=== PATIENT | female | born 1985 | race African-American/Black ===

== ENCOUNTER 2017-05-03 21:23 | Emergency (ER) | payer SELFPAY ==
[2017-05-03 21:34] VITALS: BP 125/79; PULSE 85; TEMP 98.3; BMI 55.3
--- NOTE | 2017-05-03 22:21 | PDOC ---
History of Present Illness - General History Source: Patient Exam Limitations: No Limitations - History of Present Illness Initial Comments: 05/03/17 22:32 The patient is a 31 year old female with past medical history of morbid obesity and hypertension who presents with complaints of cough for a week and a half. She states her cough is dry, worse at night and is accompanied with a left sided chest pain that is worsened with the cough, as well as an occipital headache. She denies any fever, chills, nausea, vomiting, diarrhea, or urinary symptoms. <Melita Paredes - Last Filed: 05/03/17 22:32> <Vanda Henry - Last Filed: 05/04/17 01:39> - General Chief Complaint: Respiratory Stated Complaint: COUGHING Time Seen by Provider: 05/03/17 22:15 Past History <Melita Paredes - Last Filed: 05/03/17 22:32> - Past Medical History Other medical history: denies - Suicide/Smoking/Psychosocial Hx Smoking History: Never smoked <Vanda Henry - Last Filed: 05/04/17 01:39> - Past Medical History Allergies/Adverse Reactions: Allergies Allergy/AdvReac Type Severity Reaction Status Date / Time hydrocodone bitartrate Allergy Verified 05/03/17 21:34 [From Vicoprofen] ibuprofen [From Vicoprofen] Allergy Verified 05/03/17 21:34 peanut Allergy Verified 05/03/17 21:34 shrimp Allergy Verified 05/03/17 21:34 Home Medications: Ambulatory Orders Acetaminophen W/ Codeine #3 [Tylenol # 3 -] 2 tab PO Q8H #18 tablet MDD 6 Azithromycin [Zithromax Tri-Rosalino (3 DAYS) -] 500 mg PO DAILY #3 tablet 05/04/17 Review of Systems - Review of Systems Able to Perform ROS?: Yes Comments:: 05/03/17 22:39 CONSTITUTIONAL: Absent: fever, chills, diaphoresis, generalized weakness, malaise, loss of appetite HEENT: Absent: rhinorrhea, nasal congestion, throat pain, throat swelling, difficulty swallowing, mouth swelling, ear pain, eye pain, visual Changes CARDIOVASCULAR: Present: left sided chest pain Absent: syncope, palpitations, irregular heart rate, lightheadedness, peripheral edema RESPIRATORY: Present: dry cough Absent: shortness of breath, dyspnea with exertion, orthopnea, wheezing, stridor, hemoptysis GASTROINTESTINAL: Absent: abdominal pain, abdominal distension, nausea, vomiting, diarrhea, constipation, melena, hematochezia GENITOURINARY: Absent: dysuria, frequency, urgency, hesitancy, hematuria, flank pain, genital pain MUSCULOSKELETAL: Absent: myalgia, arthralgia, joint swelling SKIN: Absent: rash, itching, pallor HEMATOLOGIC/IMMUNOLOGIC: Absent: easy bleeding, easy bruising, lymphadenopathy, frequent infections ENDOCRINE: Absent: unexplained weight gain, unexplained weight loss, heat intolerance, cold intolerance NEUROLOGIC: Present: headache Absent: focal weakness or paresthesias, dizziness, unsteady gait, seizure, mental status changes, bladder or bowel incontinence PSYCHIATRIC: Absent: anxiety, depression, suicidal or homicidal ideation, hallucinations. All Other Systems: Reviewed and Negative <Melita Paredes - Last Filed: 05/03/17 22:32> *Physical Exam - Vital Signs Last Vital Signs Temp Pulse Resp BP Pulse Ox 98.3 F 85 18 125/79 99 05/03/17 21:29 05/03/17 21:29 05/03/17 21:29 05/03/17 21:29 05/03/17 21:29 - Physical Exam Comments: 05/03/17 22:40 GENERAL: Well developed, morbidly obese. Awake and alert. No acute distress. HEENT: Normocephalic, atraumatic. PERRLA, EOMI. No conjunctival pallor. Sclera are non- icteric. Moist mucous membranes. Oropharynx is clear. NECK: Supple. Full ROM. No JVD. Carotid pulses 2+ and symmetric, without bruits. No thyromegaly. No lymphadenopathy. CARDIOVASCULAR: Regular rate and rhythm. No murmurs, rubs, or gallops. Distal pulses are 2+ and symmetric. PULMONARY: Bilateral wheezes in all lung nj. No rales or rhonchi. ABDOMINAL: Soft. Non-tender. Non-distended. No rebound or guarding. No organomegaly. Normoactive bowel sounds. MUSCULOSKELETAL Normal range of motion at all joints. No bony deformities or tenderness. No CVA tenderness. EXTREMITIES: No cyanosis. No clubbing. No edema. No calf tenderness. SKIN: Warm and dry. Normal capillary refill. No rashes. No jaundice. NEUROLOGICAL: Alert, awake, appropriate. Cranial nerves 2-12 intact. No deficits to light touch and temperature in face, upper extremities and lower extremities. No motor deficits in the in face, upper extremities and lower extremities. Normoreflexic in the upper and lower extremities. Normal speech. Toes are down-going bilaterally. Gait is normal without ataxia. PSYCHIATRIC: Cooperative. Good eye contact. Appropriate mood and affect. <Melita Paredes - Last Filed: 05/03/17 22:32> - Vital Signs Last Vital Signs Temp Pulse Resp BP Pulse Ox 98.3 F 85 18 125/79 99 05/03/17 21:29 05/03/17 21:29 05/03/17 21:29 05/03/17 21:29 05/03/17 21:29 <Vanda Henry - Last Filed: 05/04/17 01:39> Medical Decision Making - Medical Decision Making 05/04/17 01:36 Morbidly obese female comes with cough x 2 weeks. SHe has no other complaints. She has no hx of asthma. Pt was given steroids, duoneb, tyl#3 for cough suppression and JIN, as well as zithromax for atypical pneumonia. Pt will go home with T#3 and zpak. Pt has known allergy to hydromorphone that causes hives, but states that despite that she has no problem with percocet or T#3. Pt's cxr is normal and she is vastly improved with treatment. <Vanda Henry - Last Filed: 05/04/17 01:39> *DC/Admit/Observation/Transfer - Attestations Scribe Attestion: 05/03/17 22:43 Documentation prepared by Melita Paredes, acting as program medical director for Vanda Henry MD. <Melita Paredes - Last Filed: 05/03/17 22:32> - Discharge Dispostion Admit: No <Vanda Henry - Last Filed: 05/04/17 01:39> Diagnosis at time of Disposition: Atypical pneumonia, Cough headache - Discharge Dispostion Disposition: HOME Condition at time of disposition: Stable - Prescriptions Prescriptions: Acetaminophen W/ Codeine #3 [Tylenol # 3 -] 2 tab PO Q8H #18 tablet MDD 6 Azithromycin [Zithromax Tri-Rosalino (3 DAYS) -] 500 mg PO DAILY #3 tablet - Patient Instructions Printed Discharge Instructions: DI for Pneumonia -- Adult - Post Discharge Activity Forms/Work/School Notes: Back to Work
[2017-05-03] MEDS ORDERED: ACETAMINOPHEN WITH CODEINE 300MG/30MG TABLET PO ONE (22:29)
[2017-05-03] MEDS ORDERED: AZITHROMYCIN 250 MG TABLET PO ONE (22:30)
[2017-05-03] MEDS ORDERED: DEXAMETHASONE LIQUID 0.5 MG/5 ML 240 ML BULK BOTTLE PO ONE (22:31)
[2017-05-03] MEDS ORDERED: AZITHROMYCIN 250 MG TABLET ONE (22:34)
[2017-05-03] MEDS ORDERED: DEXAMETHASONE SOD PHOSPHATE 10 MG/1 ML VIAL ONE (22:34)
[2017-05-03] MEDS ORDERED: ACETAMINOPHEN WITH CODEINE 300MG/30MG TABLET ONE (22:34)
== END 2017-05-04 00:15 | disposition home or self-care (01) ==
LOC: JER 21:23 → JERFT 21:23 → JER 05-04 00:15
DX: J18.9 Pneumonia, unspecified organism (principal); I10 Essential (primary) hypertension; E66.01 Morbid (severe) obesity due to excess calories; Z68.43 Body mass index [BMI] 50.0-59.9, adult
CPT/HCPCS: 71020-TC; 84703; 99282-25

== ENCOUNTER 2017-07-02 17:36 | Emergency (ER) | payer OTHER ==
--- NOTE | 2017-07-02 17:40 | PDOC ---
Rapid Medical Evaluation Time Seen by Provider: 07/02/17 17:39 Medical Evaluation: Allergies Allergy/AdvReac Type Severity Reaction Status Date / Time hydrocodone bitartrate Allergy Verified 05/03/17 21:34 [From Vicoprofen] ibuprofen [From Vicoprofen] Allergy Verified 05/03/17 21:34 peanut Allergy Verified 05/03/17 21:34 shrimp Allergy Verified 05/03/17 21:34 07/02/17 17:39 I have performed a brief in-person evaluation of this patient. The patient presents with a chief complaint of: Lower abd pain w/ ? urinary freq and nausea x 1 week ago. Morbid obesity and sickle cell trait Pertinent physical exam findings:Stable w/ ttp to lower abd diffusely I have ordered the following:cbc/chem/ua/upreg/gc/chlam The patient will proceed to the ED for further evaluation. 07/02/17 17:40 07/02/17 17:41
[2017-07-02 17:42] VITALS: BP 137/90; PULSE 84; TEMP 98.1; BMI 68.0
[2017-07-02 18:36] LABS: PH,URINE 6.5 (5.0-8.0); URINE APPEARANCE CLEAR; URINE BILIRUBIN NEGATIVE (NEGATIVE); URINE BLOOD NEGATIVE (NEGATIVE); URINE COLOR LT. YELLOW; URINE GLUCOSE (UA) NEGATIVE (NEGATIVE); URINE KETONE NEGATIVE (NEGATIVE); URINE NITRITE NEGATIVE (NEGATIVE); URINE PROTEIN NEGATIVE (NEGATIVE); URINE UROBILINOGEN 0.2 mg/dL (0.2-1.0)
[2017-07-02 21:25] LABS: URINE LEUK ESTERASE 1+ (NEGATIVE)
[2017-07-02 22:18] LABS: URINE BACTERIA FEW /hpf (NEGATIVE); URINE RBC 0-2 /hpf (0-3)
== END 2017-07-02 21:17 | disposition left against medical advice (07) ==
LOC: JER 17:36
DX: R10.30 Lower abdominal pain, unspecified (principal); D57.3 Sickle-cell trait; E66.01 Morbid (severe) obesity due to excess calories; Z68.44 Body mass index [BMI] 60.0-69.9, adult
CPT/HCPCS: 36415; 81003; 81015; 84703; 87491; 87591; 99281-25

== ENCOUNTER 2017-07-03 21:43 | Emergency (ER) | payer OTHER ==
[2017-07-03 21:49] VITALS: TEMP 98.6; BMI 64.6
--- NOTE | 2017-07-03 21:51 | PDOC ---
Rapid Medical Evaluation Chief Complaint: Pain Time Seen by Provider: 07/03/17 21:47 Medical Evaluation: Allergies Allergy/AdvReac Type Severity Reaction Status Date / Time hydrocodone bitartrate Allergy Verified 07/02/17 17:42 [From Vicoprofen] peanut Allergy Verified 07/02/17 17:42 shrimp Allergy Verified 07/02/17 17:42 07/03/17 21:47 Pt presents with complaint of : left upper quadrant pain x1 week. + nausea/ On brief exam: Patient alert ox3, LUQ + tenderness. no CVAT I have ordered the following: cbc, cmp, lipase, UA, Urine Pt will go to the Emergency Dept for further workup 07/03/17 21:50
[2017-07-03] MEDS ORDERED: FAMOTIDINE IV 20 MG/12 ML VIAL IVPUSH ONE ×2 (23:45)
[2017-07-03] MEDS ORDERED: SODIUM CHLORIDE 1,000 ML IV STA (23:46)
[2017-07-03] MEDS ORDERED: MAG HYDROX/AL HYDROX/SIMETH 30 ML UNIT-DOSE CUP PO ONE (23:46)
[2017-07-03] MEDS ORDERED: FAMOTIDINE 20 MG/50 ML IVPB 50 ML IVPB ONE (23:46)
[2017-07-03] MEDS ORDERED: ONDANSETRON 4 MG/2 ML VIAL IVPB ONE (23:46)
[2017-07-03] MEDS ORDERED: MAG HYDROX/AL HYDROX/SIMETH 30 ML UNIT-DOSE CUP ONE (23:51)
[2017-07-03] MEDS ORDERED: ONDANSETRON 4 MG/2 ML VIAL ONE (23:51)
[2017-07-04] MEDS ORDERED: FAMOTIDINE 20 MG/50 ML IVPB 20 MG/50 ML MG IVPB ONE (00:23)
[2017-07-04] MEDS ORDERED: FAMOTIDINE 20 MG/50 ML IVPB 50 MG/125 ML MG IVPB ONE (00:29)
--- NOTE | 2017-07-04 00:32 | PDOC ---
History of Present Illness - General Chief Complaint: Pain Stated Complaint: STOMACH PAIN Time Seen by Provider: 07/03/17 21:47 - History of Present Illness Initial Comments: 07/04/17 00:27 "The patient is a 32 year old female, with a significant past medical history of sickle cell trait and anemia, who presents to the emergency department complaining of abdominal pain for approximately 1 week. The patient reports epigastric for about 1 week. She reports associated nausea without vomiting, exacerbated with solid or fluid intake. She denies any diarrhea or constipation. She reports hot flashes at night but denies any fever, chills, cough, or dizziness. She reports taking a total of 1000 mg Ibuprofen every day as well as Aspirin for the past week for migraine headaches. Denies any dark stools or BRBPR. She denies any dysuria, hematuria, frequency, or urgency. She denies any chest pain, shortness of breath, diaphoresis, or palpitations. She denies any recent travel or sick contacts. Allergies: NKDA Past Surgical History: Section Social History: Non smoker. No ETOH or recreational drug use. " Past History - Past Medical History Allergies/Adverse Reactions: Allergies Allergy/AdvReac Type Severity Reaction Status Date / Time hydrocodone bitartrate Allergy Verified 07/02/17 17:42 [From Vicoprofen] peanut Allergy Verified 07/02/17 17:42 shrimp Allergy Verified 07/02/17 17:42 Home Medications: Ambulatory Orders Esomeprazole Magnesium [Nexium 24Hr] 20 mg PO DAILY #30 tablet. 07/04/17 COPD: No - Suicide/Smoking/Psychosocial Hx Smoking History: Never smoked Have you smoked in the past 12 months: No Information on smoking cessation initiated: No Hx Alcohol Use: No Drug/Substance Use Hx: No *Physical Exam - Vital Signs Last Vital Signs Temp Pulse Resp BP Pulse Ox 98.6 F 94 H 20 155/63 98 07/03/17 21:47 07/03/17 21:47 07/03/17 21:47 07/03/17 21:47 07/03/17 21:47 - Physical Exam Comments: 07/04/17 00:29 "GENERAL: Awake, alert, and fully oriented, in no acute distress HEAD: No signs of trauma EYES: PERRLA, EOMI, sclera anicteric, conjunctiva clear ENT: Auricles normal inspection, hearing grossly normal, nares patent, oropharynx clear without exudates. Moist mucosa NECK: Nontender, no stepoffs, Normal ROM, supple, no lymphadenopathy, JVD, or masses LUNGS: Breath sounds equal, clear to auscultation bilaterally. No wheezes, and no crackles HEART: Regular rate and rhythm, normal S1 and S2, no murmurs, rubs or gallops ABDOMEN: +epigastric TTP, negative velez's. No guarding, no rebound. No masses EXTREMITIES: Normal range of motion, no edema. No clubbing or cyanosis. No cords, erythema, or tenderness NEUROLOGICAL: Cranial nerves II through XII intact. 5/5 strength and sensation in all extremities, Normal speech, normal gait SKIN: Warm, Dry, normal turgor, no rashes or lesions noted. " ED Treatment Course - LABORATORY CBC & Chemistry Diagram: 07/04/17 00:20 12 00:20 - Medications Given in the ED: ED Medications Discontinued Medications Generic Name Dose Route Start Last Admin Trade Name Freq PRN Reason Stop Dose Admin Al Hydroxide/Mg Hydroxide 30 ml 07/03/17 23:46 07/04/17 00:20 Mylanta Oral Suspension - PO 07/03/17 23:47 30 ml ONCE ONE Administration Medical Decision Making - Medical Decision Making 07/04/17 00:31 32 F with epigastric pain and nausea x 1 week in the context of taking 1000mg ibuprofen daily as well as aspirin for migraines. Pt likely has gastritis 2/2 NSAID use. Will also r/o pancreatitis. Pt with stable vitals and non-toxic appearing, making perforation unlikely. - Labs, lipase - CXR - UPT - Maalox, pepcid, zofran 07/04/17 01:55 CBC,CMP WBC 9.2 K/mm3 (4.0-10.0) 07/04/17 00:20 RBC 4.96 M/mm3 (3.60-5.2) 07/04/17 00:20 Hgb 12.5 GM/dL (10.7-15.3) 07/04/17 00:20 Hct 38.5 % (32.4-45.2) 07/04/17 00:20 MCV 77.5 fl (80-96) L 07/04/17 00:20 MCH 25.2 pg (25.7-33.7) L 07/04/17 00:20 MCHC 32.5 g/dl (32.0-36.0) 07/04/17 00:20 RDW 15.3 % (11.6-15.6) 07/04/17 00:20 Plt Count 393 K/MM3 (134-434) 07/04/17 00:20 MPV 8.3 fl (7.5-11.1) 07/04/17 00:20 Neutrophils % 59.3 % (42.8-82.8) 07/04/17 00:20 Lymphocytes % 29.0 % (8-40) 07/04/17 00:20 Monocytes % 7.5 % (3.8-10.2) 07/04/17 00:20 Eosinophils % 3.2 % (0-4.5) 07/04/17 00:20 Basophils % 1.0 % (0-2.0) 07/04/17 00:20 Sodium 139 mmol/L (136-145) 07/04/17 00:20 Potassium 4.5 mmol/L (3.5-5.1) 07/04/17 00:20 Chloride 108 mmol/L (98-107) H 07/04/17 00:20 Carbon Dioxide 23 mmol/L (21-32) 07/04/17 00:20 Anion Gap 8 (8-16) 07/04/17 00:20 BUN 11 mg/dL (7-18) 07/04/17 00:20 Creatinine 0.8 mg/dL (0.55-1.02) 07/04/17 00:20 Creat Clearance w eGFR > 60 (>60) 07/04/17 00:20 Random Glucose 101 mg/dL (74-106) 07/04/17 00:20 Calcium 8.8 mg/dL (8.5-10.1) 07/04/17 00:20 Total Bilirubin 0.4 mg/dL (0.2-1.0) 07/04/17 00:20 AST 16 U/L (15-37) 07/04/17 00:20 ALT 20 U/L (12-78) 07/04/17 00:20 Alkaline Phosphatase 90 U/L (45-117) 07/04/17 00:20 Total Protein 7.9 g/dl (6.4-8.2) 07/04/17 00:20 Albumin 3.3 g/dl (3.4-5.0) L 07/04/17 00:20 Lipase 129 U/L (73-393) 07/04/17 00:20 Pt reassessed s/p meds. Now able to tolerate PO. Reports pain has improved significantly. Pt with normal LFTs, negative velez's, will defer US at this time. Pain more likely 2/2 gastritis given significant NSAID use. CXR without free air under diaphragm. Pt to be DC'ed with GI f/u. *DC/Admit/Observation/Transfer Diagnosis at time of Disposition: Gastritis - Discharge Dispostion Disposition: HOME - Prescriptions Prescriptions: Esomeprazole Magnesium [Nexium 24Hr] 20 mg PO DAILY #30 tablet.dr - Referrals Referrals: Tc Soriano MD [Staff Physician] - - Patient Instructions Printed Discharge Instructions: DI for Gastritis Additional Instructions: Do not take any more ibuprofen, aleve, aspirin, or other NSAID medications. Take nexium daily as prescribed. You can also use Maalox or tums to reduce stomach acid. Call the number provided to make an appointment with our GI clinic as soon as possible to have your abdominal pain further evaluated. You may need an endoscopy to look for stomach ulcers. If you experience worsening pain, nausea, vomiting, fevers, or any other concerning symptoms, return to the ER immediately. - Post Discharge Activity - Attestations Physician Attestion: 07/04/17 01:59 I, Dr. Emery Montano MD, attest that this document has been prepared under my direction and personally reviewed by me in its entirety. I further attest, that it accurately reflects all work, treatment, procedures and medical decision -making performed by me.
[2017-07-04 00:45] LABS: EOSINOPHIL 3.2 % (0-4.5); MCH 25.2 pg (25.7-33.7); MCHC 32.5 g/dl (32.0-36.0); MEAN CELL VOLUME 77.5 fl (80-96); MEAN PLT VOLUME 8.3 fl (7.5-11.1); NEUTROPHILS 59.3 % (42.8-82.8); PLATELET COUNT 393 K/MM3 (134-434); RDW 15.3 % (11.6-15.6); WHITE BLOOD COUNT 9.2 K/mm3 (4.0-10.0)
[2017-07-04 00:51] LABS: URINE APPEARANCE CLEAR; URINE BILIRUBIN NEGATIVE (NEGATIVE); URINE BLOOD NEGATIVE (NEGATIVE); URINE COLOR LTYELLOW; URINE GLUCOSE (UA) NEGATIVE (NEGATIVE); URINE KETONE NEGATIVE (NEGATIVE); URINE NITRITE NEGATIVE (NEGATIVE); URINE PROTEIN NEGATIVE (NEGATIVE); URINE UROBILINOGEN NEGATIVE mg/dL (0.2-1.0)
[2017-07-04 01:14] LABS: ALBUMIN 3.3 g/dl (3.4-5.0); ANION GAP 8 (8-16); BILIRUBIN,TOTAL 0.4 mg/dL (0.2-1.0); CALCIUM 8.8 mg/dL (8.5-10.1); CO2 23 mmol/L (21-32); CREATININE 0.8 mg/dL (0.55-1.02); GLUCOSE,RANDOM 101 mg/dL (74-106); SGPT/ALT 20 U/L (12-78); TOT PROT 7.9 g/dl (6.4-8.2)
[2017-07-04 01:15] LABS: ALK PHOS 90 U/L (45-117)
[2017-07-04 01:28] LABS: SGOT/AST 16 U/L (15-37)
[2017-07-04 02:20] VITALS: BP 129/83; PULSE 78
[2017-07-04 09:48] LABS: URINE LEUK ESTERASE Negative (NEGATIVE)
== END 2017-07-04 02:21 | disposition home or self-care (01) ==
LOC: JER 21:43
PROC: 3E033GC Introduction of Other Therapeutic Substance into Peripheral Vein, Percutaneous Approach (ICD-10-PCS; principal; 2017-07-03)
PROC: 3E0337Z Introduction of Electrolytic and Water Balance Substance into Peripheral Vein, Percutaneous Approach (ICD-10-PCS; 2017-07-03)
DX: K29.70 Gastritis, unspecified, without bleeding (principal)
CPT/HCPCS: 36415; 71020-TC; 80053; 81003; 83690; 84703; 85025; 99282-25

== ENCOUNTER 2017-11-02 17:56 | Emergency (ER) | payer OTHER ==
--- NOTE | 2017-11-02 18:12 | PDOC ---
History of Present Illness - General History Source: Patient Exam Limitations: No Limitations - History of Present Illness Initial Comments: 11/02/17 18:52 The patient is a 32 year old female, with a significant past medical history of sickle cell trait, anemia, and hypertension, who presents to the emergency department with, 1 day of worsening, diffuse epigastric pain. She describes her pain as a burning, stabbing feeling. She reports her pain began after eating this morning. Secondary to her symptoms, she reports nausea without emesis and one episode of loose stool. She reports to have had gallstones in the past. Her last menses was October 15. She denies taking anything for the pain. She denies recent fevers, chills, headache or dizziness. She denies recent constipation. She denies recent dysuria, frequency, urgency or hematuria. She denies recent chest pain or shortness of breath. Social History: Nonsmoker. Denies EtOH use and recreational drug use. <Dwight Carrasco - Last Filed: 11/02/17 19:11> - History of Present Illness Initial Comments: 11/02/17 19:27 Physical exam: Alert and oriented. Massively obese in mild to moderate distress due to abdominal pain, but cooperative Afebrile, vital signs normal No pallor or icterus. HEENT clear Neck supple without bruit mass or nodes Lungs clear CV regular without murmur rub or gallop Abdomen massively obese and examination is considerably difficult, but there appears to be no acute distention. Bowel sounds are normal. Diffuse tenderness primarily in the upper abdomen, midline. No localization over the right upper quadrant, right lower quadrant and pelvis Pelvic exam: External genitalia normal. Small amount of whitish discharge. Cervix closed, no lesions. Mucosa normal No cervical motion tenderness. No adnexal masses or tenderness. Extremities no CCE Skin clear, no rash, adequate turgor and wet mucous membranes Neurological intact Impression: Patient's symptoms suggest either severe dyspepsia or viral gastroenteritis. There are no findings on pelvic exam suggestive of disease. Abdominal exam is extremely difficult due to the patient's weight, however, there appear to be no peritoneal signs Plan: Labs, symptomatic treatment, and further evaluation depending on results. Signed out to at 8:30 PM pending lab work and further evaluation 11/04/17 10:05 <Benji Boston - Last Filed: 11/04/17 10:09> - General Chief Complaint: Pain Stated Complaint: LOWER ABDOMINAL PAIN NAUSEA NO VOMITING [address] Time Seen by Provider: 11/02/17 18:11 Past History <Dwight Carrasco - Last Filed: 11/02/17 19:11> - Past Medical History COPD: No - Suicide/Smoking/Psychosocial Hx Smoking History: Never smoked Have you smoked in the past 12 months: No Hx Alcohol Use: No Drug/Substance Use Hx: No <Benji Boston - Last Filed: 11/04/17 10:09> - Past Medical History Allergies/Adverse Reactions: Allergies Allergy/AdvReac Type Severity Reaction Status Date / Time hydrocodone bitartrate Allergy Verified 07/02/17 17:42 [From Vicoprofen] peanut Allergy Verified 07/02/17 17:42 shrimp Allergy Verified 07/02/17 17:42 Home Medications: Ambulatory Orders Esomeprazole Magnesium [Nexium 24Hr] 20 mg PO DAILY #30 tablet. 07/04/17 Ondansetron [Zofran Odt -] 4 mg SL TID PRN #8 od.tablet 11/02/17 Review of Systems - Review of Systems Able to Perform ROS?: Yes Comments:: 11/02/17 18:52 CONSTITUTIONAL: Absent: fever, no chills, no fatigue EYES: Absent: visual changes ENT: Absent: ear pain, no sore throat CARDIOVASCULAR: Absent: chest pain, no palpitations RESPIRATORY: Absent: cough, no SOB GI: Present: Epigastric pain, Nausea Absent: no vomiting, no constipation, no diarrhea GENITOURINARY: Absent: dysuria, no frequency, no hematuria MUSKULOSKELETAL: Absent: back pain, no arthralgia, no myalgia SKIN: Absent: rash NEURO: Absent: headache All Other Systems: Reviewed and Negative <Dwight Carrasco - Last Filed: 11/02/17 19:11> *Physical Exam - Vital Signs Last Vital Signs Temp Pulse Resp BP Pulse Ox 99.1 F 105 H 24 135/90 98 11/02/17 17:58 11/02/17 17:58 11/02/17 17:58 11/02/17 17:58 11/02/17 17:58 - Physical Exam Comments: 11/02/17 19:11 (+)GENERAL: Morbidly obese. Well developed, well nourished. Awake and alert. No acute distress. HEENT: Normocephalic, atraumatic. PERRLA, EOMI. No conjunctival pallor. Sclera are non- icteric. Moist mucous membranes. Oropharynx is clear. NECK: Supple. Full ROM. No JVD. Carotid pulses 2+ and symmetric, without bruits. No thyromegaly. No lymphadenopathy. CARDIOVASCULAR: Regular rate and rhythm. No murmurs, rubs, or gallops. Distal pulses are 2+ and symmetric. PULMONARY: No evidence of respiratory distress. Lungs clear to auscultation bilaterally. No wheezing, rales or rhonchi. (+)ABDOMINAL: Mildly diffuse tenderness to palpation without localization. Soft. Non- distended. No rebound or guarding. No organomegaly. Normoactive bowel sounds. MUSCULOSKELETAL Normal range of motion at all joints. No bony deformities or tenderness. No CVA tenderness. EXTREMITIES: No cyanosis. No clubbing. No edema. No calf tenderness. SKIN: Warm and dry. Normal capillary refill. No rashes. No jaundice. NEUROLOGICAL: Alert, awake, appropriate. Cranial nerves 2-12 intact. No deficits to light touch and temperature in face, upper extremities and lower extremities. No motor deficits in the in face, upper extremities and lower extremities. Normoreflexic in the upper and lower extremities. Normal speech. Toes are down- going bilaterally. Gait is normal without ataxia. PSYCHIATRIC: Cooperative. Good eye contact. Appropriate mood and affect. <Dwight Carrasco - Last Filed: 11/02/17 19:11> ED Treatment Course - ADDITIONAL ORDERS Additional order review: Laboratory Results 11/02/17 18:30 Urine Color Yellow Urine Appearance Clear Urine pH 8.5 H Ur Specific [place] 1.015 Urine Protein Negative Urine Glucose (UA) Negative Urine Ketones Negative Urine Blood Negative Urine Nitrite Negative Urine Bilirubin Negative Urine Urobilinogen 0.2 Ur Leukocyte Esterase 1+ H Urine HCG, Qual Negative - Medications Given in the ED: ED Medications Discontinued Medications Generic Name Dose Route Start Last Admin Trade Name Freq PRN Reason Stop Dose Admin Ondansetron HCl 8 mg 11/02/17 18:32 04/01/18 18:46 Zofran Odt - SL 11/02/17 18:33 8 mg ONCE ONE Administration Pantoprazole Sodium 40 mg 11/02/17 18:32 11/02/17 18:46 Protonix Packets For Oral Suspension - PO 11/02/17 18:33 40 mg ONCE ONE Administration <Dwight Carrasco - Last Filed: 11/02/17 19:11> - LABORATORY CBC & Chemistry Diagram: 11/02/17 20:18 11/02/17 20:18 <Benji Boston - Last Filed: 11/04/17 10:09> *DC/Admit/Observation/Transfer - Attestations Scribe Attestion: 11/02/17 18:52 Documentation prepared by Dwight Carrasco, acting as director medical safety for Benji Burnett MD. <Dwight Carrasco - Last Filed: 11/02/17 19:11> <Benji Boston - Last Filed: 11/04/17 10:09> Diagnosis at time of Disposition: Gastroenteritis - Discharge Dispostion Disposition: HOME Condition at time of disposition: Stable - Prescriptions Prescriptions: Ondansetron [Zofran Odt -] 4 mg SL TID PRN #8 od.tablet PRN Reason: Nausea - Patient Instructions Printed Discharge Instructions: DI for Vomiting -- Adult Additional Instructions: Take zofran as needed for nausea. Stay hydrated and drink plenty of fluids. Follow up with your primary doctor within 2-3 days. Return to the emergency department if you have any new, worsening, or concerning symptoms.
[2017-11-02] MEDS ORDERED: ONDANSETRON 4 MG/2 ML VIAL IVPB ONE (18:27)
[2017-11-02] MEDS ORDERED: KETOROLAC TROMETHAMINE 30 MG/1 ML VIAL IVPUSH ONE (18:27)
[2017-11-02] MEDS ORDERED: PANTOPRAZOLE SOD 40 MG SUSPENSION PACKET PO ONE (18:32)
[2017-11-02] MEDS ORDERED: ONDANSETRON *ODT* 4 MG TABLET SL ONE (18:32)
[2017-11-02 18:36] VITALS: BP 135/90; PULSE 105; TEMP 99.1; BMI 71.3
[2017-11-02 18:36] LABS: PH,URINE 8.5 (4.5-8); URINE APPEARANCE Clear; URINE BILIRUBIN Negative (NEGATIVE); URINE BLOOD Negative (NEGATIVE); URINE GLUCOSE (UA) Negative (NEGATIVE); URINE KETONE Negative (NEGATIVE); URINE NITRITE Negative (NEGATIVE); URINE PROTEIN Negative (NEGATIVE); URINE UROBILINOGEN 0.2 (0.2-1.0)
[2017-11-02 18:37] LABS: URINE COLOR YELLOW; URINE LEUK ESTERASE 1+ (NEGATIVE)
[2017-11-02 18:38] LABS: HCG,QUALITATIVE URINE NEGATIVE
[2017-11-02] MEDS ORDERED: PANTOPRAZOLE 40 MG TABLET (FP) ONE (18:44)
[2017-11-02] MEDS ORDERED: ONDANSETRON *ODT* 4 MG TABLET ONE ×2 (18:44→22:12)
[2017-11-02 20:40] LABS: BASO % 0.6 % (0-2.0); EOS % 2.3 % (0-4.5); HEMATOCRIT 38.6 % (32.4-45.2); HEMOGLOBIN 12.5 GM/dl (10.7-15.3); LYMPH % 18.6 % (8-40); MCH 24.9 pg (25.7-33.7); MCHC 32.5 g/dl (32.0-36.0); MEAN CELL VOLUME 76.6 fl (80-96); MEAN PLT VOLUME 8.2 fl (7.5-11.1); NEUT % 73.5 % (42.8-82.8); PLATELET COUNT 367 K/MM3 (134-434); RBC 5.05 M/mm3 (3.60-5.2); WHITE BLOOD COUNT 5.7 K/mm3 (4.0-10.8)
[2017-11-02 20:47] LABS: ALBUMIN 3.6 g/dl (3.5-5.0); ALK PHOS 69 U/L (32-92); ANION GAP 9 (8-16); BILIRUBIN,TOTAL 0.9 mg/dl (0.2-1.0); BLOOD UREA NITROGEN 10 mg/dl (7-18); CALCIUM 8.9 mg/dl (8.4-10.2); CHLORIDE 103 mmol/L (98-107); CO2 23 mmol/L (22-28); CREATININE 0.7 mg/dl (0.6-1.3); GLUCOSE,RANDOM 116 mg/dl (74-106); SGOT/AST 27 U/L (10-42); SGPT/ALT 27 U/L (10-40); SODIUM 135 mmol/L (136-145); TOT PROT 7.5 g/dl (6.4-8.3)
[2017-11-02 21:52] LABS: URINE RBC 0-2 /hpf (0-3)
[2017-11-02 21:53] LABS: EPI CELLS MODERATE /HPF; URINE BACTERIA FEW /hpf (NEGATIVE)
[2017-11-02 21:56] LABS: LIPASE 134 U/L (73-393)
--- NOTE | 2017-11-02 22:47 | PDOC ---
*Physical Exam - Vital Signs Last Vital Signs Temp Pulse Resp BP Pulse Ox 99.1 F 105 H 24 135/90 98 11/02/17 17:58 11/02/17 17:58 11/02/17 17:58 11/02/17 17:58 11/02/17 17:58 ED Treatment Course - LABORATORY CBC & Chemistry Diagram: 11/02/17 20:18 11/02/17 20:18 - ADDITIONAL ORDERS Additional order review: Laboratory Results 11/02/17 11/02/17 20:18 18:30 Sodium 135 L Potassium 4.0 Chloride 103 Carbon Dioxide 23 Anion Gap 9 BUN 10 Creatinine 0.7 Creat Clearance w eGFR > 60 Random Glucose 116 H Calcium 8.9 Total Bilirubin 0.9 AST 27 ALT 27 Alkaline Phosphatase 69 Total Protein 7.5 Albumin 3.6 Lipase 134 Urine Color Yellow Urine Appearance Clear Urine pH 8.5 H Ur Specific [place] 1.015 Urine Protein Negative Urine Glucose (UA) Negative Urine Ketones Negative Urine Blood Negative Urine Nitrite Negative Urine Bilirubin Negative Urine Urobilinogen 0.2 Ur Leukocyte Esterase 1+ H Urine RBC 0-2 Urine WBC 5-10 Ur Epithelial Cells Moderate Urine Bacteria Few Urine HCG, Qual Negative 11/02/17 20:18 RBC 5.05 MCV 76.6 L MCHC 32.5 RDW 15.0 MPV 8.2 Neutrophils % 73.5 Lymphocytes % 18.6 Monocytes % 5.0 Eosinophils % 2.3 Basophils % 0.6 - Medications Given in the ED: ED Medications Discontinued Medications Generic Name Dose Route Start Last Admin Trade Name Freq PRN Reason Stop Dose Admin Ondansetron HCl 8 mg 11/02/17 18:32 11/02/17 18:46 Zofran Odt - SL 11/02/17 18:33 8 mg ONCE ONE Administration Pantoprazole Sodium 40 mg 11/02/17 18:32 11/02/17 18:46 Protonix Packets For Oral Suspension - PO 11/02/17 18:33 40 mg ONCE ONE Administration Medical Decision Making - Medical Decision Making 11/02/17 22:39 Care received at 1900 Pt p/w N/V, diffuse abd discomfort, pending labs, UA, UPT On reassessment, exam wnl, no abd ttp Pt initially with improvement with nausea but had some return of nausea that resolved with SL zofran Pt is tolerating PO, feels much better requests DC home I discussed the physical exam findings, ancillary test results and final diagnoses with the patient. I answered all of the patient's questions. The patient was satisfied with the care received and felt comfortable with the discharge plan and treatment plan. The patient will call their primary care physician within 24 hours to arrange follow-up and will return to the Emergency Department with any new, persistent or worsening symptoms. *DC/Admit/Observation/Transfer Diagnosis at time of Disposition: Gastroenteritis - Discharge Dispostion Disposition: HOME Condition at time of disposition: Stable Admit: No - Referrals - Patient Instructions Printed Discharge Instructions: DI for Vomiting -- Adult Additional Instructions: Take zofran as needed for nausea. Stay hydrated and drink plenty of fluids. Follow up with your primary doctor within 2-3 days. Return to the emergency department if you have any new, worsening, or concerning symptoms. - Post Discharge Activity - Attestations Physician Attestion: 11/02/17 22:50 I, Dr. Tena Whelan MD, attest that this document has been prepared under my direction and personally reviewed by me in its entirety. I further attest, that it accurately reflects all work, treatment, procedures and medical decision -making performed by me.
== END 2017-11-02 23:01 | disposition home or self-care (01) ==
LOC: FER 17:56
DX: K52.9 Noninfective gastroenteritis and colitis, unspecified (principal); E66.9 Obesity, unspecified; Z68.45 Body mass index [BMI] 70 or greater, adult
CPT/HCPCS: 36415; 80053; 81003; 81015; 83690; 84703; 85025; 87491; 87591; 99282-25; Q0162

== ENCOUNTER 2019-02-01 15:22 | Emergency (ER) | payer OTHER ==
[2019-02-01 15:32] VITALS: BMI 70.7
--- NOTE | 2019-02-01 15:35 | PDOC ---
Rapid Medical Evaluation Chief Complaint: Edema Time Seen by Provider: 02/01/19 15:25 Medical Evaluation: Allergies Allergy/AdvReac Type Severity Reaction Status Date / Time hydrocodone bitartrate Allergy Verified 02/01/19 15:28 [From Vicoprofen] peanut Allergy Verified 02/01/19 15:28 shrimp Allergy Verified 02/01/19 15:28 02/01/19 15:30 I have performed a brief in-person evaluation of this patient. The patient presents with a chief complaint of: swelling and pain to bilateral legs/ worsen erythema x 2 weeks with weight gain with fluid. ALSO c/o SOB - + hx of PEs in November= November 23. Pertinent physical exam findings: Morbid obesity with erythema and skin changes to bilat lower ext with pitting edema I have ordered the following: UA/ UcG, EKG The patient will proceed to the ED for further evaluation. 02/01/19 15:36 Discharge Disposition - Diagnosis Edema - Referrals - Patient Instructions - Post Discharge Activity
[2019-02-01 16:48] LABS: BASO % 0.8 % (0-2.0); EOS % 4.3 % (0-4.5); HEMOGLOBIN 11.4 GM/dL (10.7-15.3); LYMPH % 29.8 % (8-40); MCHC 32.7 g/dl (32.0-36.0); MEAN CELL VOLUME 79.7 fl (80-96); MEAN PLT VOLUME 7.8 fl (7.5-11.1); MONO % 4.8 % (3.8-10.2); NEUT % 60.3 % (42.8-82.8); PLATELET COUNT 312 K/MM3 (134-434); RDW 15.8 % (11.6-15.6); WHITE BLOOD COUNT 6.2 K/mm3 (4.0-10.0)
--- NOTE | 2019-02-01 16:54 | PDOC ---
History of Present Illness - General Chief Complaint: Edema Stated Complaint: SWOLLEN LEGS Time Seen by Provider: 02/01/19 15:25 History Source: Patient Exam Limitations: No Limitations - History of Present Illness Initial Comments: 02/01/19 16:10 33-year-old obese female presents to ED with complaints of worsening redness and swelling to the lower extremities over the past 4 days. Patient also states mild shortness of breath with exertion since the delivery of her son who is currently 2 months old. Patient states history of PE as currently on Elavil was. Patient also states was on Lasix up until one month ago secondary to lower extremity dependent edema patient does have history of cellulitis and states similar presentation to previous episode Timing/Duration: getting worse Severity: mild Associated Symptoms: reports: shortness of breath Past History - Travel Traveled outside of the country in the last 30 days: No Close contact w/someone who was outside of country & ill: No - Past Medical History Allergies/Adverse Reactions: Allergies Allergy/AdvReac Type Severity Reaction Status Date / Time hydrocodone bitartrate Allergy Verified 02/01/19 15:28 [From Vicoprofen] peanut Allergy Verified 02/01/19 15:28 shrimp Allergy Verified 02/01/19 15:28 Home Medications: Ambulatory Orders Esomeprazole Magnesium [Nexium 24Hr] 20 mg PO DAILY #30 tablet. 07/04/17 Ondansetron [Zofran Odt -] 4 mg SL TID PRN #8 od.tablet 11/02/17 Clindamycin [Cleocin -] 300 mg PO Q6HPO #40 capsule 02/01/19 Cardiac Disorders: (PE on eliquis) COPD: No Other medical history: preclampsia - Reproductive History LMP Normal: Yes Is Patient Now?: No - Suicide/Smoking/Psychosocial Hx Smoking History: Never smoked Have you smoked in the past 12 months: No Hx Alcohol Use: Yes (OCCASIONALLY) Drug/Substance Use Hx: No Substance Use Type: Alcohol Patient Lives Alone: No Lives with/in: spouse/SO Review of Systems - Review of Systems Able to Perform ROS?: Yes Constitutional: No: Symptoms Reported HEENTM: No: Symptoms Reported Respiratory: Yes: SOB with Exertion Cardiac (ROS): Yes: Edema : No: Symptoms Reported Musculoskeletal: No: Symptoms Reported Integumentary: Yes: Erythema Neurological: No: Symptoms reported *Physical Exam - Vital Signs Last Vital Signs Temp Pulse Resp BP Pulse Ox 98.5 F 94 H 18 134/56 L 97 02/01/19 15:26 02/01/19 15:26 02/01/19 15:26 02/01/19 15:26 02/01/19 15:26 - Physical Exam General Appearance: Yes: Nourished, Appropriately Dressed. No: Apparent Distress Neck: positive: Normal Thyroid Respiratory/Chest: positive: Lungs Clear, Normal Breath Sounds. negative: Respiratory Distress, Accessory Muscle Use Cardiovascular: positive: Regular Rhythm, Regular Rate. negative: Murmur Vascular Pulses: Dorsalis-Pedis (R): 2+, Doralis-Pedis (L): 2+ Gastrointestinal/Abdominal: negative: Tenderness Extremity: positive: Normal Range of Motion, Pedal Edema (3 + pitting and warm to touch to inner claves and knees greater in skin fold regions. No open lesions ) Integumentary: positive: Erythema, Swelling Neurologic: positive: Motor Strength 5/5 (ambulatory) Heart Score/ECG Review - ECG Intrepretation Rhythm: Regular Rhythm (rate 90, nsr) ED Treatment Course - LABORATORY CBC & Chemistry Diagram: 02/01/19 16:40 02/01/19 16:40 - RADIOLOGY Radiology Studies Ordered: Category Date Time Status DUPLEX VASCUL US-2LEGS [US] Stat Ultrasound 02/01/19 15:58 Ordered Medical Decision Making - Medical Decision Making 02/01/19 17:13 Chief complaint: lower extremity swelling redness and discomfort worsening over the past few weeks along with intermittent shortness of breath since delivery of her son 2 months ago. Recent PE (November 23) currently on eliquis. Exam: Noted 3+ pitting edema to lower extremities with erythema and increased warmth greater in the skin folds and medially bilaterally Plan: Likely cellulitis but will rule out DVT. Labs, urine, duplex ordered 02/01/19 18:19 Sonographic evidence of right or left lower extremity of DVT Laboratory Tests 02/01/19 02/01/19 02/01/19 16:40 16:40 16:40 WBC 6.2 Hgb 11.4 Hct 35.0 Plt Count 312 D Absolute Neuts (auto) 3.7 Neutrophils % 60.3 D-Dimer 873 H Sodium 139 Potassium 3.7 Chloride 106 Carbon Dioxide 28 Anion Gap 5 L BUN 8.5 Creatinine 0.8 Est GFR (CKD-EPI)AfAm 110.70 Random Glucose 109 H Lactic Acid Calcium 9.5 Magnesium 2.2 Total Bilirubin 0.7 AST 10 L ALT 16 Alkaline Phosphatase 91 Total Protein 7.4 Albumin 3.5 Urine Ketones Urine Nitrite Ur Leukocyte Esterase 02/01/19 02/01/19 16:40 16:49 WBC Hgb Hct Plt Count Absolute Neuts (auto) Neutrophils % D-Dimer Sodium Potassium Chloride Carbon Dioxide Anion Gap BUN Creatinine Est GFR (CKD-EPI)AfAm Random Glucose Lactic Acid 1.5 Calcium Magnesium Total Bilirubin AST ALT Alkaline Phosphatase Total Protein Albumin Urine Ketones Negative Urine Nitrite Negative Ur Leukocyte Esterase Negative Due to elevated d-dimer,atient be ordered for CTA of the chest to rule out worsening/saddle PE. Patient also be ordered for 1 dose of IV clindamycin since IV access has to be established with a CTA. *DC/Admit/Observation/Transfer Diagnosis at time of Disposition: Cellulitis Edema Qualifiers: Edema type: unspecified Qualified Code(s): R60.9 - Edema, unspecified - Discharge Dispostion Disposition: HOME Condition at time of disposition: Stable - Prescriptions Prescriptions: Clindamycin [Cleocin -] 300 mg PO Q6HPO #40 capsule - Referrals - Patient Instructions Printed Discharge Instructions: Cellulitis Additional Instructions: elevate your extremities apply warm compress to the area. Follow-up with your doctor in 2 days for wound check you may take probiotics 2 hours before or 2 hours after antibiotics. continue eloquis as prescribed. Additional Instructions: * Please call your personal physician to report your Emergency Department visit and to report your progress, if any. * If there is no improvement in symptoms in 2 days call your physician. * Return to the Emergency Department for any worsening symptoms. - Post Discharge Activity Forms/Work/School Notes: Back to Work
[2019-02-01 17:33] LABS: ALBUMIN 3.5 g/dl (3.4-5.0); BILIRUBIN,TOTAL 0.7 mg/dL (0.2-1); BLOOD UREA NITROGEN 8.5 mg/dL (7-18); CALCIUM 9.5 mg/dL (8.5-10.1); CREATININE 0.8 mg/dL (0.55-1.3); MAGNESIUM 2.2 mg/dL (1.8-2.4); POTASSIUM 3.7 mmol/L (3.5-5.1); TOT PROT 7.4 g/dl (6.4-8.2)
[2019-02-01 17:57] LABS: PH,URINE 6.5 (5.0-8.0); URINE APPEARANCE CLEAR; URINE BILIRUBIN NEGATIVE (NEGATIVE); URINE COLOR YELLOW; URINE GLUCOSE (UA) NEGATIVE (NEGATIVE); URINE KETONE NEGATIVE (NEGATIVE); URINE LEUK ESTERASE NEGATIVE (NEGATIVE); URINE NITRITE NEGATIVE (NEGATIVE); URINE PROTEIN NEGATIVE (NEGATIVE)
[2019-02-01] MEDS ORDERED: CLINDAMYCIN IVPB 300 MG in DEXTROSE 5%-WATER - 48 ML IVPB ONE (18:22)
--- NOTE | 2019-02-01 22:19 | PDOC ---
*Physical Exam - Vital Signs Last Vital Signs Temp Pulse Resp BP Pulse Ox 98.5 F 94 H 18 134/56 L 97 02/01/19 15:26 02/01/19 15:26 02/01/19 15:26 02/01/19 15:26 02/01/19 15:26 - Physical Exam General Appearance: Yes: Appropriately Dressed Extremity: positive: Pedal Edema, Swelling Integumentary: positive: Erythema, Other ED Treatment Course - LABORATORY CBC & Chemistry Diagram: 02/01/19 16:40 02/01/19 16:40 - ADDITIONAL ORDERS Additional order review: Laboratory Results 02/01/19 02/01/19 02/01/19 16:49 16:40 16:40 D-Dimer Sodium Potassium Chloride Carbon Dioxide Anion Gap BUN Creatinine Est GFR (CKD-EPI)AfAm Est GFR (CKD-EPI)NonAf Random Glucose Lactic Acid 1.5 Calcium Magnesium Total Bilirubin AST ALT Alkaline Phosphatase Total Protein Albumin Serum , Qual Negative Urine Color Yellow Urine Appearance Clear Urine pH 6.5 Ur Specific [place] 1.013 Urine Protein Negative Urine Glucose (UA) Negative Urine Ketones Negative Urine Blood Negative Urine Nitrite Negative Urine Bilirubin Negative Urine Urobilinogen 1.0 Ur Leukocyte Esterase Negative 02/01/19 02/01/19 16:40 16:40 D-Dimer 873 H Sodium 139 Potassium 3.7 Chloride 106 Carbon Dioxide 28 Anion Gap 5 L BUN 8.5 Creatinine 0.8 Est GFR (CKD-EPI)AfAm 110.70 Est GFR (CKD-EPI)NonAf 95.52 Random Glucose 109 H Lactic Acid Calcium 9.5 Magnesium 2.2 Total Bilirubin 0.7 AST 10 L ALT 16 Alkaline Phosphatase 91 Total Protein 7.4 Albumin 3.5 Serum , Qual Urine Color Urine Appearance Urine pH Ur Specific [place] Urine Protein Urine Glucose (UA) Urine Ketones Urine Blood Urine Nitrite Urine Bilirubin Urine Urobilinogen Ur Leukocyte Esterase 02/01/19 16:40 RBC 4.40 MCV 79.7 L MCHC 32.7 RDW 15.8 H MPV 7.8 Neutrophils % 60.3 Lymphocytes % 29.8 Monocytes % 4.8 Eosinophils % 4.3 Basophils % 0.8 - Medications Given in the ED: ED Medications Discontinued Medications Generic Name Dose Route Start Last Admin Trade Name Freq PRN Reason Stop Dose Admin Clindamycin Phosphate 300 mg/ 50 mls @ 100 mls/hr 02/01/19 18:22 02/01/19 19: 53 Dextrose IVPB 02/01/19 18:51 100 mls/hr ONCE ONE Administration Protocol Medical Decision Making - Medical Decision Making 02/01/19 22:14 CTA : negative clinidamycin given patient to follow up with pcp *DC/Admit/Observation/Transfer Diagnosis at time of Disposition: Edema Qualifiers: Edema type: unspecified Qualified Code(s): R60.9 - Edema, unspecified Cellulitis Qualifiers: Site of cellulitis: extremity Site of cellulitis of extremity: lower extremity Laterality: unspecified laterality Qualified Code(s): L03.119 - Cellulitis of unspecified part of limb - Discharge Dispostion Disposition: HOME - Prescriptions Prescriptions: Clindamycin [Cleocin -] 300 mg PO Q6HPO #40 capsule - Referrals - Patient Instructions Printed Discharge Instructions: Cellulitis Additional Instructions: elevate your extremities apply warm compress to the area. Follow-up with your doctor in 2 days for wound check you may take probiotics 2 hours before or 2 hours after antibiotics. continue eloquis as prescribed. Additional Instructions: * Please call your personal physician to report your Emergency Department visit and to report your progress, if any. * If there is no improvement in symptoms in 2 days call your physician. * Return to the Emergency Department for any worsening symptoms. - Post Discharge Activity Forms/Work/School Notes: Back to Work
[2019-02-01 23:22] VITALS: BP 138/55; PULSE 92; TEMP 98.6
--- NOTE | 2019-02-02 14:53 | EKG ---
Test Reason : Blood Pressure : / mmHG Vent. Rate : 090 BPM Atrial Rate : 090 BPM P-R Int : 192 ms QRS Dur : 094 ms QT Int : 376 ms P-R-T Axes : 051 026 014 degrees QTc Int : 459 ms NORMAL SINUS RHYTHM POSSIBLE ANTERIOR INFARCT , AGE UNDETERMINED ABNORMAL ECG NO PREVIOUS ECGS AVAILABLE Confirmed by MD BRANDON, DIANNE ([id number]) on 02/02/2019 2:52:57 PM Referred By: Confirmed By:DIANNE TAYLOR MD
== END 2019-02-01 23:23 | disposition home or self-care (01) ==
LOC: JER 15:22
DX: L03.116 Cellulitis of left lower limb (principal); L03.115 Cellulitis of right lower limb; Z86.711 Personal history of pulmonary embolism; Z79.01 Long term (current) use of anticoagulants
CPT/HCPCS: 36415; 71275-TC; 80053; 81003; 83605; 83735; 84703; 85025; 85379; 93005; 93010; 93970-TC; 96365; 99283-25

== ENCOUNTER 2019-02-13 22:59 | Emergency (ER) | payer OTHER ==
[2019-02-13 23:20] VITALS: BMI 68.5
--- NOTE | 2019-02-13 23:55 | PDOC ---
History of Present Illness - General Chief Complaint: Chest Pain Stated Complaint: CHEST PAIN Time Seen by Provider: 02/13/19 23:54 History Source: Patient Exam Limitations: No Limitations - History of Present Illness Timing/Duration: other (2 days) Past History - Past Medical History Allergies/Adverse Reactions: Allergies Allergy/AdvReac Type Severity Reaction Status Date / Time hydrocodone bitartrate Allergy Verified 02/01/19 15:28 [From Vicoprofen] peanut Allergy Verified 02/01/19 15:28 shrimp Allergy Verified 02/01/19 15:28 Home Medications: Ambulatory Orders Apixaban [Eliquis] 5 mg PO BID #60 tablet 02/14/19 Cardiac Disorders: (PE on eliquis) COPD: No - Suicide/Smoking/Psychosocial Hx Smoking History: Never smoked Have you smoked in the past 12 months: No Hx Alcohol Use: Yes (OCCASIONALLY) Drug/Substance Use Hx: No Substance Use Type: Alcohol *Physical Exam - Vital Signs Last Vital Signs Temp Pulse Resp BP Pulse Ox 98.5 F 96 H 20 126/54 L 98 02/13/19 23:16 02/13/19 23:16 02/13/19 23:16 02/13/19 23:16 02/13/19 23:16 ED Treatment Course - LABORATORY CBC & Chemistry Diagram: 02/14/19 01:15 02/14/19 01:15 Medical Decision Making - Medical Decision Making 02/14/19 06:29 33 y/o F with hx PE in November recently d/c Eliquis p/w two days of worsening SOB and chest tightness that worsens with exertion and deep inspiration, tachycardia , bilateral LE swelling previously treated for presumed cellulitis, consistent with acute PE with separate bilateral LE cellulitis with possible DVTs. Plan for cardiac workup, likely CT PE, likely admission for cellulitis that failed outpt treatment. --- 02/14/19 06:32 D-dimer resulted 1230, CT PE ordered *DC/Admit/Observation/Transfer - Prescriptions Prescriptions: Apixaban [Eliquis] 5 mg PO BID #60 tablet - Referrals - Patient Instructions - Post Discharge Activity
[2019-02-14 02:01] LABS: ALBUMIN 3.2 g/dl (3.4-5.0); ALK PHOS 83 U/L (45-117); ANION GAP 3 MMOL/L (8-16); BILIRUBIN,TOTAL 0.3 mg/dL (0.2-1); BLOOD UREA NITROGEN 9.6 mg/dL (7-18); CALCIUM 8.6 mg/dL (8.5-10.1); CHLORIDE 109 mmol/L (98-107); CO2 31 mmol/L (21-32); CREATININE 0.7 mg/dL (0.55-1.3); GLUCOSE,RANDOM 107 mg/dL (74-106); POTASSIUM 3.8 mmol/L (3.5-5.1); SGOT/AST 10 U/L (15-37); SGPT/ALT 13 U/L (13-61); SODIUM 142 mmol/L (136-145); TOT PROT 6.8 g/dl (6.4-8.2)
[2019-02-14 02:03] LABS: INR 1.09 (0.83-1.09); PROTHROMBIN TIME (PATIENT) 12.9 SEC (9.7-13.0)
[2019-02-14 02:32] LABS: BASO % 0.9 % (0-2.0); EOS % 6.6 % (0-4.5); HEMATOCRIT 31.9 % (32.4-45.2); HEMOGLOBIN 10.6 GM/dL (10.7-15.3); LYMPH % 34.1 % (8-40); MCH 26.3 pg (25.7-33.7); MCHC 33.3 g/dl (32.0-36.0); MEAN CELL VOLUME 79.1 fl (80-96); MEAN PLT VOLUME 8.6 fl (7.5-11.1); MONO % 4.8 % (3.8-10.2); NEUT % 53.6 % (42.8-82.8); PLATELET COUNT 277 K/MM3 (134-434); RBC 4.03 M/mm3 (3.60-5.2); RDW 15.8 % (11.6-15.6); WHITE BLOOD COUNT 8.9 K/mm3 (4.0-10.0)
[2019-02-14] MEDS ORDERED: APIXABAN 5 MG TABLET PO ONE ×2 (02:39→02:59)
[2019-02-14] MEDS ORDERED: VANCOMYCIN 1,000 MG in DEXTROSE 5%-WATER - 250 ML IVPB ONE (03:21)
[2019-02-14] MEDS ORDERED: VANCOMYCIN 1 GRAM (PRE-DOCKED) 1,000 MG/250 ML BAG IVPB ONE (04:07)
--- NOTE | 2019-02-14 05:31 | PDOC ---
Documentation entered by Radha Medina SCRIBE, acting as scribe for Vanda Henry MD. Vanda Henry MD: This documentation has been prepared by the scribe, Radha Medina SCRIBE, under my direction and personally reviewed by me in its entirety. I confirm that the documentation accurately reflects all work, treatment, procedures, and medical decision making performed by me. Attending Attestation - Resident Resident Name: Nicolás Mesa - ED Attending Attestation I have performed the following: I have examined & evaluated the patient, The case was reviewed & discussed with the resident, I agree w/resident's findings & plan - HPI HPI: 02/14/19 02:50 The patient is a 33 year old female, , with a past medical history significant for morbid obesity, PE (in November, was on Eliquis, D/C on 02/01) presents to the emergency department with dyspnea on exertion, shortness of breath and diffused pleuritic chest pain for the past 2-3 days. The patient reports the symptom is similar to prior PE episode, associated with lightheadedness. Denies palpitation, fever, or chills. - Physicial Exam PE: 02/14/19 02:58 GENERAL: Awake, alert and oriented. The patient is in no acute distress. ENT: Ears normal, nares patent, oropharynx clear without exudates. Moist mucous membranes. NECK: Normal range of motion, supple, no nuchal rigidity LUNGS: Breath sounds equal, clear to auscultation bilaterally. No wheezes, and no crackles. HEART: Regular rate and rhythm, normal S1 and S2 without murmur, rub or gallop. ABDOMEN: Soft, nontender, normoactive bowel sounds. No guarding, no rebound. No masses palpable. EXTREMITIES: Normal range of motion, pt has edematous and overweight legs. She has cellulitis and redness and inflammation that is spreading on her legs. NEUROLOGICAL: Answering all questions. Cranial nerves II through XII grossly intact. Normal speech. No focal neurological deficits. SKIN: Warm, Dry, normal turgor, no rashes or lesions noted. 02/14/19 05:26 - Medical Decision Making 02/14/19 05:29 Patient Name: DANIEL MOLINA THIS IS A PRELIMINARY REPORT FROM [facility] DATE OF SERVICE: 2019-02-14 04:14:14 IMAGES: [id number] EXAM: CTA CHEST No obvious PE, but evaluation markedly limited by suboptimal contrast opacification (contrast leaked out during injection due to poorly fastened hub, per technologist's note) . If there is continued concern for PE, consider V/Q scan or repeat CTA. No aortic aneurysm. No pneumonia or pleural effusions. Small anterior mediastinal soft tissue, probably thymic. Probable hepatosplenomegaly, incompletely seen. One or more of the following dose reduction techniques were used: automated exposure control, adjustment of the mA and/or kV according to patient size, use of iterative reconstructive technique. THIS DOCUMENT HAS BEEN ELECTRONICALLY SIGNED 02/14/19 20:22 Pt signed out to the day ER team, who will follow her leg duplex and they will dispo her for her inflammation/skin swelling/PVD vs cellulitis of her bilateral legs.
--- NOTE | 2019-02-14 05:38 | PN ---
Teaching Attending Note Name of Resident: Anu Motley ATTENDING PHYSICIAN STATEMENT I saw and evaluated the patient. I reviewed the resident's note and discussed the case with the resident. I agree with the resident's findings and plan as documented. Seen and examined in consult in the ER. Appreciate involving [facility]. Morbidly obese 33 y/o female with a history of 11/2018 diagnosed with provoked PE 11/29/2018. She was on eliquis and tells me her PCP told her to DC it to check levels at the end of january. She presents with chest tightness when lying down and was found to have a +D-dimer but negative CTA prelim read. 3 months would have been 02/28 for earliest day to stop NOAC. Hb ~baseline, not tachycardic, no hemodynamic instability. Feels safe to go home. There was concern of cellulitis but this is symmetrical b/l in a patient with BMI of 68 with changes consistent of lymphedema; there is symmetrical warmth and redness and palpable pedal pulses, no drainage. No white count, fever. Highly unlikely this is cellulitis; appears as stereotyped PAD. NAD, AAO, resting in bed Morbidly obese, NT ND +BS CN2-12 wnl, no fnd RRR s1/2 Lymphedematous changes sym b/l with symmetrical resness from mid calfs to knees (mild) with some warmth that is not painful to touch. +pedal pulses. ASSESSMENT AND PLAN: Patient with provoked PE presents after stopping eliquis before 3 month; negative preliminary CT for PE. Apparent vascular disease with morbid obesity and lymphedema noted. # Known Provoked PE -Not massive/submassive, sx improved. She shouldbe on eliquis untilat least so should restart. Even if PE+ on CT would not change tx as this was known and she tolerated eliquis. She has no hemodynamic instability observed in 6+ hours. I recommend she be discharged home on eliquis and followup with PCP within 2-5 days. # Likely PAD -Likely exacerbated by her lymphedema; positive pedal pulses, no s/s CLI. Recommend arterial dopplers and referral for ABIs. Recommend weight loss. She has no fever or white count and symmetric b/l cellulitis in this distribution would be highly unlikely. No abx needed at this time. # Morbid obesity -Reccomend bariatric referral #Peripheral eosiniphilia, mild -FU CBC OP 2-4 weeks Full Code
--- NOTE | 2019-02-14 06:05 | CONSULT ---
Consultation: REQUESTING PROVIDER:Dr. Henry CONSULT REQUEST: We have been asked to medically evaluate this patient for b/l LE edema, SOB HISTORY OF PRESENT ILLNESS: Patient is a 33 year old, morbidly obese patient, who presented to the ED due worsening SOB and chest tightness for 2 days. Patient was recently diagnosed of PE (11/29) after having a (11/23). She was discharged home on Eliquis. Patient discontinued her Eliquis on 02/01, as told by her PCP. Patient also reports worsening bilateral leg swelling and redness which started after she had her in November. She came to the ED 2 weeks ago, and was sent home on Clindamycin, which she completed for 10 days. Patient reports no improving with the redness and swelling and, with the SOB, patient returned to the ED. REVIEW OF SYSTEMS: CONSTITUTIONAL: Absent: fever, chills, diaphoresis, generalized weakness, malaise, loss of appetite, weight change HEENT: Absent: rhinorrhea, nasal congestion, throat pain, throat swelling, difficulty swallowing, mouth swelling, ear pain, eye pain, visual changes CARDIOVASCULAR: chest tightness, peripheral edema Absent: chest pain, syncope, palpitations, irregular heart rate, lightheadedness , peripheral edema RESPIRATORY: shortness of breath Absent: cough, shortness of breath, dyspnea with exertion, orthopnea, wheezing, stridor, hemoptysis GASTROINTESTINAL: Absent: abdominal pain, abdominal distension, nausea, vomiting, diarrhea, constipation, melena, hematochezia GENITOURINARY: Absent: dysuria, frequency, urgency, hesitancy, hematuria, flank pain, genital pain MUSCULOSKELETAL: Absent: myalgia, arthralgia, joint swelling, back pain, neck pain SKIN: Absent: rash, itching, pallor HEMATOLOGIC/IMMUNOLOGIC: Absent: easy bleeding, easy bruising, lymphadenopathy, frequent infections ENDOCRINE: Absent: unexplained weight gain, unexplained weight loss, heat intolerance, cold intolerance NEUROLOGIC: Absent: headache, focal weakness or paresthesias, dizziness, unsteady gait, seizure, mental status changes, bladder or bowel incontinence PSYCHIATRIC: Absent: anxiety, depression, suicidal or homicidal ideation, hallucinations. PHYSICAL EXAMINATION Vital Signs - 24 hr 02/13/19 02/14/19 23:16 05:08 Temperature 98.5 F Pulse Rate 96 H Pulse Rate [ 79 Radial] Respiratory 20 Rate Blood Pressure 126/54 L Blood Pressure 121/67 [Left Arm] O2 Sat by Pulse 98 99 Oximetry (%) GENERAL: Awake, alert, and fully oriented, in no acute distress. NECK: Normal range of motion, supple. LUNGS: Breath sounds equal, clear to auscultation bilaterally. HEART: Regular rate and rhythm, normal S1 and S2 without murmur, rub or gallop. ABDOMEN: Soft, nontender, not distended, normoactive bowel sounds. LOWER EXTREMITIES: 2+ pulses, warm, well-perfused. +Bilateral LE: nonpitting edema, erythema, nontender SKIN: Warm, dry, normal turgor, no rashes or lesions noted. Laboratory Results - last 24 hr 02/14/19 02/14/19 02/14/19 01:15 01:15 01:15 WBC 8.9 RBC 4.03 Hgb 10.6 L Hct 31.9 L MCV 79.1 L MCH 26.3 MCHC 33.3 RDW 15.8 H Plt Count 277 MPV 8.6 D Absolute Neuts (auto) 4.8 Neutrophils % 53.6 Lymphocytes % 34.1 Monocytes % 4.8 Eosinophils % 6.6 H Basophils % 0.9 Nucleated RBC % 0 PT with INR INR PTT (Actin FS) D-Dimer Sodium 142 Potassium 3.8 Chloride 109 H Carbon Dioxide 31 Anion Gap 3 L BUN 9.6 Creatinine 0.7 Est GFR (CKD-EPI)AfAm 130.10 Est GFR (CKD-EPI)NonAf 112.25 Random Glucose 107 H Calcium 8.6 Total Bilirubin 0.3 AST 10 L ALT 13 Alkaline Phosphatase 83 Creatine Kinase 69 Troponin I < 0.02 Total Protein 6.8 Albumin 3.2 L Serum , Qual Negative 02/14/19 02/14/19 02/14/19 01:20 01:20 01:20 WBC RBC Hgb Hct MCV MCH MCHC RDW Plt Count MPV Absolute Neuts (auto) Neutrophils % Lymphocytes % Monocytes % Eosinophils % Basophils % Nucleated RBC % PT with INR 12.90 INR 1.09 PTT (Actin FS) 27.4 D-Dimer 1230 H Sodium Potassium Chloride Carbon Dioxide Anion Gap BUN Creatinine Est GFR (CKD-EPI)AfAm Est GFR (CKD-EPI)NonAf Random Glucose Calcium Total Bilirubin AST ALT Alkaline Phosphatase Creatine Kinase Troponin I Total Protein Albumin Serum , Qual ASSESSMENT/PLAN: Patient is a 33 year old female, morbidly obese, who presented to the ED due to SOB and bilateral LE swelling. #SOB rule out massive/submassive PE -No hemodynamic instability observed since patient came into the ED -CTA chest done -restart Eliquis 5mg BID until 02/28 and follow up with primary care doctor #Bilateral leg swelling -likely 2/2 peripheral arterial disease -with no fever, white count, and considering the chronicity of the swelling, it' s unlikely infectious -REcommend arterial dopplers and referral for ZOEY -Recommend referral to vascular surgery -No antibiotics needed at this time Visit type - Emergency Visit Emergency Visit: Yes Care time: The patient presented to the Emergency Department on the above date and was hospitalized for further evaluation of their emergent condition. - New Patient This patient is new to me today: Yes Date on this admission: 02/15/19 - Critical Care Critical Care patient: No ATTENDING PHYSICIAN STATEMENT I saw and evaluated the patient. I reviewed the resident's note and discussed the case with the resident. I agree with the resident's findings and plan as documented. SUBJECTIVE: OBJECTIVE: ASSESSMENT AND PLAN:
--- NOTE | 2019-02-14 07:11 | PDOC ---
*Physical Exam - Vital Signs Last Vital Signs Temp Pulse Resp BP Pulse Ox 98.5 F 79 20 121/67 99 02/13/19 23:16 02/14/19 05:08 02/13/19 23:16 02/14/19 05:08 02/14/19 05:08 ED Treatment Course - LABORATORY CBC & Chemistry Diagram: 02/14/19 01:15 02/14/19 01:15 - ADDITIONAL ORDERS Additional order review: Laboratory Results 02/14/19 02/14/19 02/14/19 01:20 01:20 01:20 PT with INR 12.90 INR 1.09 PTT (Actin FS) 27.4 D-Dimer 1230 H Sodium Potassium Chloride Carbon Dioxide Anion Gap BUN Creatinine Est GFR (CKD-EPI)AfAm Est GFR (CKD-EPI)NonAf Random Glucose Calcium Total Bilirubin AST ALT Alkaline Phosphatase Creatine Kinase Troponin I Total Protein Albumin Serum , Qual 02/14/19 02/14/19 01:15 01:15 PT with INR INR PTT (Actin FS) D-Dimer Sodium 142 Potassium 3.8 Chloride 109 H Carbon Dioxide 31 Anion Gap 3 L BUN 9.6 Creatinine 0.7 Est GFR (CKD-EPI)AfAm 130.10 Est GFR (CKD-EPI)NonAf 112.25 Random Glucose 107 H Calcium 8.6 Total Bilirubin 0.3 AST 10 L ALT 13 Alkaline Phosphatase 83 Creatine Kinase 69 Troponin I < 0.02 Total Protein 6.8 Albumin 3.2 L Serum , Qual Negative 02/14/19 01:15 RBC 4.03 MCV 79.1 L MCHC 33.3 RDW 15.8 H MPV 8.6 D Neutrophils % 53.6 Lymphocytes % 34.1 Monocytes % 4.8 Eosinophils % 6.6 H Basophils % 0.9 - Medications Given in the ED: ED Medications Discontinued Medications Generic Name Dose Route Start Last Admin Trade Name Freq PRN Reason Stop Dose Admin Apixaban 10 mg 02/14/19 02:39 02/14/19 03:27 Eliquis - PO 02/14/19 02:40 10 mg ONCE ONE Administration Vancomycin HCl 1,000 mg/ 250 mls @ 250 mls/hr 02/14/19 03:21 02/14/19 04:42 Dextrose IVPB 02/14/19 04:20 250 mls/hr ONCE ONE Administration Protocol Medical Decision Making - Medical Decision Making 02/14/19 07:09 received sign out from Dr. Mesa. 33 yo F presenting with s/s concerning for PE; high d-dimer, negative CTA PE. B/ L LE cellulitis being treated outpatient. - Awaiting results of LE duplex - No DVT on duplex Dispo: home if duplex study neg. 02/14/19 10:31 *DC/Admit/Observation/Transfer Diagnosis at time of Disposition: Chest pain Qualifiers: Chest pain type: unspecified Qualified Code(s): R07.9 - Chest pain, unspecified Cellulitis Qualifiers: Site of cellulitis: extremity Site of cellulitis of extremity: lower extremity Laterality: unspecified laterality Qualified Code(s): L03.119 - Cellulitis of unspecified part of limb - Discharge Dispostion Disposition: HOME Condition at time of disposition: Good Decision to Admit order: No - Prescriptions Prescriptions: Apixaban [Eliquis] 5 mg PO BID #60 tablet Sulfamethoxazole/Trimethoprim [Bactrim Ds Tablet] 1 each PO BID #14 tablet - Referrals - Patient Instructions Printed Discharge Instructions: DI for Chest Pain, DI for Cellulitis -- Adult Additional Instructions: You were evaluated in the Emergency Department. We did not uncover any emergent issues but do highly recommend further evaluation - Please see your primary care doctor within the next 3-4 days for follow up and further evaluation. Medication has been sent to your pharmacy, please take those as directed. Please return to the Emergency Department if you experience any of the following : - Chest pain - Shortness of breath - High fevers or chills - any symptoms concerning to you - Post Discharge Activity
[2019-02-14 08:31] VITALS: TEMP 97.9
[2019-02-14 11:21] VITALS: BP 128/89; PULSE 77
--- NOTE | 2019-02-14 11:53 | EKG ---
Test Reason : Blood Pressure : / mmHG Vent. Rate : 089 BPM Atrial Rate : 089 BPM P-R Int : 184 ms QRS Dur : 090 ms QT Int : 372 ms P-R-T Axes : 037 005 000 degrees QTc Int : 452 ms NORMAL SINUS RHYTHM CANNOT RULE OUT ANTERIOR INFARCT (CITED ON OR BEFORE 01-FEB-2019) ABNORMAL ECG WHEN COMPARED WITH ECG OF 01-FEB-2019 15:28, NO SIGNIFICANT CHANGE WAS FOUND Confirmed by ART DRAPER, ROSARIO ([id number]) on 02/14/2019 11:52:48 AM Referred By: Confirmed By:ROSARIO CORDOVA MD
== END 2019-02-14 11:16 | disposition home or self-care (01) ==
LOC: JER 22:59 → UNDOADMIN 02-14 03:53 → JERBED 02-14 03:53 → JER 02-14 11:16
DX: R07.9 Chest pain, unspecified (principal); L03.115 Cellulitis of right lower limb; L03.116 Cellulitis of left lower limb; I89.0 Lymphedema, not elsewhere classified; E66.01 Morbid (severe) obesity due to excess calories; Z68.44 Body mass index [BMI] 60.0-69.9, adult; Z86.711 Personal history of pulmonary embolism; Z79.01 Long term (current) use of anticoagulants
CPT/HCPCS: 36415; 71046-TC-FY; 71275-TC; 80053; 82550; 84484; 84703; 85025; 85379; 85610; 85730; 87040; 93005; 93010; 93970-TC; 99285-25

== ENCOUNTER 2019-05-13 01:58 | Emergency (ER) | payer OTHER ==
[2019-05-13 03:03] VITALS: BMI 70.1
--- NOTE | 2019-05-13 03:05 | PDOC ---
Attending Attestation - Resident Resident Name: Eddie Das - ED Attending Attestation I have performed the following: I have examined & evaluated the patient, The case was reviewed & discussed with the resident, I agree w/resident's findings & plan - HPI HPI: 05/13/19 03:08 see resident hpi - Physicial Exam PE: 05/13/19 03:09 agree with resident exam - Medical Decision Making 05/13/19 03:09 34-year-old female with chest pain/leg pain and history of pulmonary embolism Plan for CTA of the chest, lower extremity Doppler planned for the a.m. Anticoagulation pending results
--- NOTE | 2019-05-13 03:41 | PDOC ---
History of Present Illness - General Chief Complaint: Chest Pain Stated Complaint: CHEST TIGHTNESS,LEG PAIN Time Seen by Provider: 05/13/19 02:49 History Source: Patient Exam Limitations: No Limitations - History of Present Illness Initial Comments: 05/13/19 03:40 Dominique Gonzalez is a 34yF w PMHx PE (11/2018), DVT not on anticoagulation, morbid obesity presenting w chest pain and R leg pain. 11pm last night, had sudden onset midsternal chest pain while sitting in recliner. Also had RLE shooting pain radiating up posterior calf from Achilles. Associated dyspnea, lightheadedness, dizziness. Was taken off Eliquis 3 months ago. Denies recent travel, surgery, or trauma. Denies fever, headache, nausea/vomiting, AB pain, urinary/bowel movement changes. Past History - Past Medical History Allergies/Adverse Reactions: Allergies Allergy/AdvReac Type Severity Reaction Status Date / Time hydrocodone bitartrate Allergy Verified 05/13/19 02:31 [From Vicoprofen] peanut Allergy Verified 05/13/19 02:31 shrimp Allergy Verified 05/13/19 02:31 Home Medications: Ambulatory Orders Apixaban [Eliquis] 5 mg PO BID #60 tablet 02/14/19 Sulfamethoxazole/Trimethoprim [Bactrim Ds Tablet] 1 each PO BID #14 tablet 02/14 Cardiac Disorders: (PE on eliquis) COPD: No - Psycho Social/Smoking Cessation Hx Smoking History: Never smoked Have you smoked in the past 12 months: No Information on smoking cessation initiated: No Hx Alcohol Use: No Drug/Substance Use Hx: No Substance Use Type: Alcohol Review of Systems - Review of Systems Constitutional: No: Chills, Fever HEENTM: No: Eye Pain, Nose Pain, Nose Congestion, Throat Pain, Mouth Pain Respiratory: Yes: Shortness of Breath. No: Cough Cardiac (ROS): Yes: Chest Pain. No: Palpitations, Syncope ABD/GI: No: Abdominal Distended, Constipated, Diarrhea, Nausea, Vomiting : No: Burning, Dysuria, Discharge, Flank Pain, Hematuria Musculoskeletal: No: Back Pain, Joint Pain, Muscle Pain, Muscle Weakness Integumentary: No: Bruising, Flushing, Lesions Neurological: No: Headache, Numbness, Seizure, Tingling, Tremors Psychiatric: No: Anxiety, Depression, Stressors Endocrine: No: Excessive Sweating, Flushing, Intolerance to Cold, Intolerance to Heat Hematologic/Lymphatic: No: Anemia, Easy Bleeding *Physical Exam - Vital Signs Last Vital Signs Temp Pulse Resp BP Pulse Ox 98.1 F 75 20 98/57 L 100 05/13/19 02:31 05/13/19 02:31 05/13/19 02:31 05/13/19 02:31 05/13/19 02:31 - Physical Exam General Appearance: Yes: Nourished, Appropriately Dressed, Mild Distress HEENT: positive: EOMI, TAYA, Normal Voice, Hearing Grossly Normal. negative: Scleral Icterus (R), Scleral Icterus (L), Nasal Congestion, Rhinorrhea Respiratory/Chest: positive: Lungs Clear, Normal Breath Sounds. negative: Chest Tender, Respiratory Distress, Crackles, Rales, Rhonchi, Stridor, Wheezing Cardiovascular: positive: Regular Rhythm, Regular Rate, S1, S2. negative: Edema , Murmur Vascular Pulses: Dorsalis-Pedis (R): 3+, Doralis-Pedis (L): 3+ Integumentary: positive: Normal Color, Other (RLE mild tenderness to deep palpation posterior calf. Not edematous/erythematous. Normal temp). negative: Swelling Neurologic: positive: Fully Oriented, Alert, Normal Response, Motor Strength 5/5 , Responsive. negative: Sensory Deficit, Confused, Disoriented Heart Score/ECG Review - History History: Slightly suspicious - Electrocardiogram EKG: Normal - Age Age: </= 45 - Risk Factors Risk Factors Heart Score: No Hx Hypercholesterolemia, No Hx Hypertension, No Hx Diabetes, No Smoking History, No Positive family hx of cardiac disease, Yes Hx Obesity Based on the list above the patient has:: 1-2 risk factors - Troponin Troponin: </= normal limit - Score Heart Score - Total: 1 ED Treatment Course - LABORATORY CBC & Chemistry Diagram: 05/13/19 04:00 05/13/19 04:00 - RADIOLOGY Radiology Studies Ordered: Category Date Time Status CHEST CTA [CT] Stat CT Scan 05/13/19 02:49 Ordered Medical Decision Making - Medical Decision Making 05/13/19 04:39 CBC CMP trop coags EKG CXR RLE duplex US r/o DVT Chest CTA r/o PE EKG shows NSR, HR 71, QTc 428, no ST changes 1L NS for repeat low BP 96/45. CBC normal, neg trop, neg HCG --- Dominique Gonzalez is a 34yF w PMHx PE (11/2018), DVT not on anticoagulation, morbid obesity presenting w chest pain and R leg pain. Concern for PE and DVT given past hx. Not , no evidence of ACS w neg trop, NSR EKG. Low concern for arterial occlusion (retained pulses, temp, sensation) Signed off to day team - pending Chest CTA r/o PE - pending RLE duplex US r/o DVT Discharge - Discharge Information Problems reviewed: Yes Clinical Impression/Diagnosis: Chest pain Qualifiers: Chest pain type: unspecified Qualified Code(s): R07.9 - Chest pain, unspecified Leg pain Qualifiers: Laterality: right Qualified Code(s): M79.604 - Pain in right leg Condition: Good - Follow up/Referral - Patient Discharge Instructions - Post Discharge Activity
[2019-05-13 05:02] LABS: BASO % 0.6 % (0-2.0); HEMATOCRIT 34.5 % (32.4-45.2); HEMOGLOBIN 11.3 GM/dL (10.7-15.3); LYMPH % 37.1 % (8-40); MCH 25.4 pg (25.7-33.7); MCHC 32.6 g/dl (32.0-36.0); MEAN CELL VOLUME 77.8 fl (80-96); MEAN PLT VOLUME 8.4 fl (7.5-11.1); MONO % 6.1 % (3.8-10.2); NEUT % 52.2 % (42.8-82.8); PLATELET COUNT 318 K/MM3 (134-434); RBC 4.44 M/mm3 (3.60-5.2); RDW 15.8 % (11.6-15.6); WHITE BLOOD COUNT 7.8 K/mm3 (4.0-10.0)
[2019-05-13 05:07] LABS: INR 1.18 (0.83-1.09)
[2019-05-13] MEDS ORDERED: SODIUM CHLORIDE 0.9% 500 ML INFUS.BAG IV ONE (05:27)
[2019-05-13 05:53] LABS: ALBUMIN 3.4 g/dl (3.4-5.0); ALK PHOS 91 U/L (45-117); ANION GAP 5 MMOL/L (8-16); BILIRUBIN,TOTAL 0.5 mg/dL (0.2-1); BLOOD UREA NITROGEN 12.6 mg/dL (7-18); CALCIUM 9.4 mg/dL (8.5-10.1); CHLORIDE 104 mmol/L (98-107); CO2 27 mmol/L (21-32); CREATININE 0.7 mg/dL (0.55-1.3); GLUCOSE,RANDOM 95 mg/dL (74-106); POTASSIUM 4.7 mmol/L (3.5-5.1); SGOT/AST 27 U/L (15-37); SGPT/ALT 17 U/L (13-61); SODIUM 136 mmol/L (136-145); TOT PROT 7.5 g/dl (6.4-8.2)
--- NOTE | 2019-05-13 07:45 | PDOC ---
*Physical Exam - Vital Signs Last Vital Signs Temp Pulse Resp BP Pulse Ox 98.1 F 71 17 98/45 L 100 05/13/19 02:31 05/13/19 06:27 05/13/19 06:27 05/13/19 06:27 05/13/19 06:27 ED Treatment Course - LABORATORY CBC & Chemistry Diagram: 05/13/19 04:00 05/13/19 04:00 - ADDITIONAL ORDERS Additional order review: Laboratory Results 05/13/19 05/13/19 05/13/19 04:00 04:00 04:00 PT with INR 14.00 H INR 1.18 H PTT (Actin FS) Sodium 136 Potassium 4.7 Chloride 104 Carbon Dioxide 27 Anion Gap 5 L BUN 12.6 Creatinine 0.7 Est GFR (CKD-EPI)AfAm 129.19 Est GFR (CKD-EPI)NonAf 111.47 Random Glucose 95 Calcium 9.4 Total Bilirubin 0.5 AST 27 ALT 17 Alkaline Phosphatase 91 Creatine Kinase 111 Troponin I < 0.02 Total Protein 7.5 Albumin 3.4 Beta HCG, Quant < 1.0 05/13/19 04:00 PT with INR INR PTT (Actin FS) 39.6 H Sodium Potassium Chloride Carbon Dioxide Anion Gap BUN Creatinine Est GFR (CKD-EPI)AfAm Est GFR (CKD-EPI)NonAf Random Glucose Calcium Total Bilirubin AST ALT Alkaline Phosphatase Creatine Kinase Troponin I Total Protein Albumin Beta HCG, Quant 05/13/19 04:00 RBC 4.44 MCV 77.8 L MCHC 32.6 RDW 15.8 H MPV 8.4 Neutrophils % 52.2 Lymphocytes % 37.1 Monocytes % 6.1 Eosinophils % 4.0 Basophils % 0.6 - Medications Given in the ED: ED Medications Discontinued Medications Generic Name Dose Route Start Last Admin Trade Name Freq PRN Reason Stop Dose Admin Sodium Chloride 1,000 ml 05/13/19 05:27 05/13/19 05:28 Normal Saline - IV 05/13/19 05:28 1,000 ml ONCE ONE Administration Medical Decision Making - Medical Decision Making 05/13/19 07:45 Sign out received from Dr Das. 34yo F hx DVT and PE not on anticoagulation and morbid obesity presenting from home with CP and SOB since 2300 last PM, like something sitting on chest, pressure type, constant, rapid onset, no inciting event, as well as anterior R thigh stabbing pain x1wk, concerned about DVT and PE. Denies fever, diaphoresis , N/V, cough, numbness/tingling, weakness, headache. Pt seen and assessed at bedside. EKG reviewed. Labs reviewed. No concerning findings. Trop at 0400 neg, low risk HEART score, no indication for 2nd trop. RLE neurovasculalry intact. Pending CTPE and duplex RLE to r/o PE and DVT. CTPE will also eval for other pulmonary pathology. Gen: Alert, NAD, comfortable-appearing, obese HEENT: PERRL, EOMI, MMM, NCAT. No conjunctival pallor. Sclera are non-icteric. CV: Regular rate and rhythm. No murmurs, rubs, or gallops. PULM: No resp distress. CTAB, no wheezes, rales, or rhonchi. ABD: soft, NT/ND, no rebound tenderness or guarding. MSK: No bony deformities. 2+ pulses in all extremities. NEURO: AAOx3. PERRL. No gross CN deficits. Strength and sensation grossly intact throughout. EXTREMITIES: +TTP anterior thigh. No cyanosis. No clubbing. No edema. PSYCH: Normal mood and thought pattern. SKIN: Warm and dry. Normal capillary refill. No rashes. No jaundice. 05/13/19 09:20 CTPE and duplex negative for PE or DVT or acute pathology. Results given and discussed. Will dc home with PCP and cardio f/u. Return precautions given. Pt understands all dc instructions and all questions were answered. Discharge - Discharge Information Problems reviewed: Yes Clinical Impression/Diagnosis: Chest pain Qualifiers: Chest pain type: unspecified Qualified Code(s): R07.9 - Chest pain, unspecified Leg pain Qualifiers: Laterality: right Qualified Code(s): M79.604 - Pain in right leg Condition: Good Disposition: HOME - Admission No - Follow up/Referral Referrals: Leobardo Garcia MD [Staff Physician] - - Patient Discharge Instructions Patient Printed Discharge Instructions: DI for Atypical Chest Pain Additional Instructions: You have been seen in the Emergency Department for your chest and leg pain. Your EKG, chest CT scan, leg ultrasound, and labs, including Troponin (a heart enzyme), show no signs concerning for an emergent condition such as a heart attack, PE, or DVT at this time. The causes of your symptoms are uncertain at this time, so you will need further evaluation. Follow-up with your primary care doctor within 1 week. We have also given you a referral to a rn radiology (heart doctor) - call his office to make a follow-up appointment for within 1 week. Also follow-up with your spun paste machine operator as planned. Return to the ED immediately if you experience chest pain, difficulty breathing , dizziness, numbness or tingling, difficulty walking, or any other new or worsening symptom. - Post Discharge Activity Work/Back to School Note: Back to Work
[2019-05-13 09:56] VITALS: BP 112/71; PULSE 74; TEMP 98.3
--- NOTE | 2019-05-13 12:10 | EKG ---
Test Reason : Blood Pressure : / mmHG Vent. Rate : 071 BPM Atrial Rate : 071 BPM P-R Int : 196 ms QRS Dur : 092 ms QT Int : 394 ms P-R-T Axes : 046 037 015 degrees QTc Int : 428 ms NORMAL SINUS RHYTHM NORMAL ECG WHEN COMPARED WITH ECG OF 13-FEB-2019 23:28, NO SIGNIFICANT CHANGE WAS FOUND Confirmed by CHRISTAL ELIZONDO MD ([id number]) on 05/13/2019 12:10:24 PM Referred By: Confirmed By:CHRISTAL ELIZONDO MD
== END 2019-05-13 10:02 | disposition home or self-care (01) ==
LOC: JER 01:58
PROC: 3E0337Z Introduction of Electrolytic and Water Balance Substance into Peripheral Vein, Percutaneous Approach (ICD-10-PCS; principal; 2019-05-13)
DX: R07.9 Chest pain, unspecified (principal); Z86.711 Personal history of pulmonary embolism; E66.01 Morbid (severe) obesity due to excess calories; Z68.45 Body mass index [BMI] 70 or greater, adult; E78.00 Pure hypercholesterolemia, unspecified; I10 Essential (primary) hypertension
CPT/HCPCS: 36415; 71275-TC; 80053; 82550; 84484; 84702; 85025; 85610; 85730; 93005; 93010; 93971-TC; 99285-25

== ENCOUNTER 2020-04-26 16:47 | Emergency (ER) | payer OTHER ==
--- NOTE | 2020-04-26 17:00 | PDOC ---
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
[2020-04-26 17:04] VITALS: BMI 62.3
--- NOTE | 2020-04-26 17:42 | PDOC ---
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 Patient reports she felt her IUD move last week and went to an urgent care center to have her hormonal IUD removed. She reports the IUD was removed without incident but had noted some vaginal bleeding which she was told would be normal. Patient reports she has been passing clots since that time. Patient was seen and evaluated by her dermatologist managing partner yesterday and told to discontinue her Coumadin until the active bleeding had been controlled. As patient has experienced continued bleeding with clots today she presented to the emergency department for evaluation. No recent travel or sick contacts. PAST MEDICAL HISTORY: Pulmonary embolism 03/28/2020 SURGICAL HISTORY: Gastric sleeve 03/11/2020 ALLERGIES: Vicodin, peanuts, shrimp REVIEW OF SYSTEMS General/Constitutional: Denies fever or chills. Denies weakness, weight change. HEENT: Denies change in vision. Denies ear pain or discharge. Denies sore throat. Cardiovascular: Denies chest pain or shortness of breath. Respiratory: Denies cough, wheezing, or hemoptysis. Gastrointestinal: Denies nausea, vomiting, diarrhea or constipation. Denies rectal bleeding. Genitourinary: See HPI Musculoskeletal: Denies joint or muscle swelling or pain. Denies neck or back pain. Skin and breasts: Denies rash or easy bruising. Neurologic: Denies headache, vertigo, loss of consciousness, or loss of sensation. Psychiatric: Denies depression or anxiety. Endocrine: Denies increased thirst. Denies abnormal weight change. Hematologic/Lymphatic: Denies anemia, easy bleeding, or history of blood clots. Allergic/Immunologic: Denies hives or skin allergy. Denies latex allergy. PHYSICAL EXAM General Appearance: Well-appearing, appropriately dressed. No apparent distress, no intoxication. Respiratory/Chest: Lungs CTAB. No shortness of breath, chest tenderness, respiratory distress, accessory muscle use. No crackles, rales, rhonchi, str idor, wheezing, dullness Cardiovascular: RRR. S1, S2. No JVD, murmur, bradycardia, tachycardia. Vascular Pulses: Dorsalis-Pedis (R): 2+, Dorsalis-Pedis (L): 2+ Gastrointestinal/Abdominal: Normal bowel sounds. Abdomen soft, non-distended. No tenderness or rebound tenderness. No organomegaly, pulsatile mass, guarding, hernia, hepatomegaly, splenomegaly. Integumentary: Appropriate color, dry, warm. No cyanosis, erythema, pallor, jaundice or rash Past History - Medical History Allergies/Adverse Reactions: Allergies Allergy/AdvReac Type Severity Reaction Status Date / Time hydrocodone bitartrate Allergy Verified 12/01/19 12:32 [From Vicoprofen] peanut Allergy Verified 12/01/19 12:32 shrimp Allergy Verified 12/01/19 12:32 Home Medications: Ambulatory Orders NK [No Known Home Medication] 12/01/19 Cardiac Disorders: Yes (PE on eliquis) COPD: No Diabetes: No HTN: No Hypercholesterolemia: No - Reproductive History Is Patient Now?: No - Immunization History Immunization Up to Date: No - Psycho-Social/Smoking History Smoking History: Never smoked Have you smoked in the past 12 months: No Information on smoking cessation initiated: No - Substance Abuse Hx (Audit-C & DAST Scrn) How often the patient has a drink containing alcohol: Never Score: In Men: 4 or > Positive; In Women: 3 or > Positive: 0 Screen Result (Pos requires Nsg. Audit-10AR): Negative In the last yr the pt used illegal drug/Rx for NonMed reason: No Score: Yes response is considered Positive: 0 Screen Result (Positive result requires Nsg. DAST-10): Negative *Physical Exam - Vital Signs Last Vital Signs Temp Pulse Resp BP Pulse Ox 98.4 F 96 H 16 124/80 97 04/26/20 16:57 04/26/20 16:57 04/26/20 16:57 04/26/20 16:57 04/26/20 16:57 ED Treatment Course - LABORATORY CBC & Chemistry Diagram: 04/26/20 18:50 04/26/20 18:50 - RADIOLOGY Radiology Studies Ordered: Category Date Time Status ABDOMEN & PELVIS CT WITH CONTR [CT] Stat CT Scan 04/26/20 17:36 Ordered TRANSVAGINAL ULTRASOUND US [US] Stat Ultrasound 04/26/20 17:36 Ordered Medical Decision Making - Medical Decision Making 04/26/20 17:42 A/P: 34-year-old woman with abnormal uterine bleeding on anticoagulation Labs per E Transvaginal ultrasound CT of the abdomen pelvis with p.o. and IV contrast ELECTRONICS ENGINEER consult Reassess 04/26/20 21:57 INR noted to be 4.2. Vitamin K 10 mg IV ordered H&H is stable. Ultrasound as read by Dr. Hightower: Moderate blood seen within the cervical canal in the endometrial canal at the level of the inferior aspect of the lower uterine segment. Uterus appears mildly prominent in overall size measuring approximately 10 x 6 x 6 cm. No discrete myometrial pathology is identified. Endometrium appears unremarkable in thickness measuring 0.6 cm. Left ovary demonstrates multiple subcentimeter follicles. Right ovary cannot be visualized due to overlapping bowel gas. No free intraperitoneal fluid is seen. CT of the abdomen and pelvis is pending prior to ELECTRONICS ENGINEER consultation. 04/27/20 00:45 CT of the abdomen and pelvis is read by imaging on-call: 2.1 x 0.9 cm rim- enhancing slightly irregular fluid collection anterior to the left hepatic lobe may represent an abscess. 7.7 x 3.1 x 3.2 cm lobulated rim-enhancing fluid collection just with patient to the sutures does not have the typical appearance of an excluded stomach which would be unusual in this lady gastric sleeve procedure is suspicious for an abscess. Stable stomach does not appear inflamed. No free air. Uterus and adnexal structures are normal. Patient had her gastric bypass surgery performed at [facility] I will contact order transfer continued evaluation. Zosyn 3.375 g IV ordered. 04/27/20 01:09 Case has been discussed with Dr. Garrett general surgeon at [facility] accepts patient for admission to the floor [facility]. Discharge - Discharge Information Problems reviewed: Yes Clinical Impression/Diagnosis: Vaginal bleeding, Intra-abdominal abscess post-procedure Condition: Guarded Disposition: TRANSFER ACUTE CARE/OTHER HOSP - Follow up/Referral Referrals: Teresa Reyes MD [Primary Care Provider] - - Patient Discharge Instructions - Post Discharge Activity - Transfer to Acute Care Facility Receiving Facility Name: [facility] (Accepted for admission by Dr. Dunn of the general surgery service at 0105.)
[2020-04-26 19:25] LABS: BASO % 0.6 % (0-2.0); EOS % 3.1 % (0-4.5); HEMATOCRIT 35.2 % (32.4-45.2); HEMOGLOBIN 11.7 GM/dL (10.7-15.3); LYMPH % 35.1 % (8-40); MCHC 33.2 g/dl (32.0-36.0); MEAN CELL VOLUME 81.5 fl (80-96); MEAN PLT VOLUME 8.8 fl (7.5-11.1); MONO % 7.3 % (3.8-10.2); NEUT % 53.9 % (42.8-82.8); PLATELET COUNT 278 K/MM3 (134-434); RBC 4.33 M/mm3 (3.60-5.2); RDW 17.8 % (11.6-15.6); WHITE BLOOD COUNT 6.8 K/mm3 (4.0-10.0)
[2020-04-26 19:38] LABS: PROTHROMBIN TIME (PATIENT) 51.1 SEC (9.7-13.0)
[2020-04-26 19:40] LABS: ACTIVATED PTT 54.6 SECONDS (25.2-36.5)
[2020-04-26 20:02] LABS: INR 4.27 (0.83-1.09)
--- OUTSIDE RECORDS SUMMARY | 2020-04-26 20:34 | XMS ---
:1985 Author Organization [facility] Care Team Providers Name Role Phone Camilotko Unavailable Unavailable Re-disclosure Warning The records that you are about to access may contain information from federally- assisted alcohol or drug abuse programs. If such information is present, then the following federally mandated warning applies: This information has been disclosed to you from records protected by federal confidentiality rules (42 CFR part 2). The federal rules prohibit you from making any further disclosure of this information unless further disclosure is expressly permitted by the written consent of the person to whom it pertains or as otherwise permitted by 42 CFR part 2. A general authorization for the release of medical or other information is NOT sufficient for this purpose. The Federal rules restrict any use of the information to criminally investigate or prosecute any alcohol or drug abuse patient.The records that you are about to access may contain highly sensitive health information, the redisclosure of which is protected by Article 27-F of the [facility] Public Health law. If you continue you may haveaccess to information: Regarding HIV / AIDS; Provided by facilities licensed or operated by the [facility] Office of Mental Health; or Provided by the [facility] Office for People With Developmental Disabilities. If such information is present, then the following [facility] mandated warning applies: This information has been disclosed to you from confidential records which are protected by state law. State law prohibits you from making any further disclosure of this information without the specific written consent of the person to whom it pertains, or as otherwise permitted by law. Any unauthorized further disclosure in violation of state law may result in a fine or fci sentence or both. A general authorization for the release of medical or other information is NOT sufficient authorization for further disclosure. Allergies and Adverse Reactions Type Description Substance Reaction Status Data Source(s ) Food allergy shrimp shrimp ANAPHYLAXIS [facility] Drug allergy acetaminophen acetaminophen URTICARIA/HIVES [facility] Drug allergy hydrocodone hydrocodone URTICARIA/HIVES [facility] Food allergy peanut peanut ANAPHYLAXIS [facility] Encounters Encounter Providers Location Date Indications Data Source(s ) Emergency Attender: John 01/16/2019 LEG PAIN/SWELLING [facility] 07:58:00 PM [facility] Hospital EDT - 01/16/2019 11:14:00 PM EDT LEG PAIN/SWELLING [facility] Patient discharged. Medications Medication Brand Start Product Dose Route Administrative Pharmacy [facility] Indications Reaction Description Data Name Date Form Instructions Instructions Source(s) No known complet [facility] . Hospital Insurance Providers Payer name Policy type Policy ID Covered Covered libertarian's Policy P siobhan / Coverage libertarian ID relationship to Segura Inf ormation type segura MARCELINA [id number] SP [id number] HEALTH NON CAP MARCELINA [id number] SP [id number] 600 HEALTH NON CAP BETTER [id number] PT [id number] HEALTH/BRITTANY LIS Problems, Conditions, and Diagnoses Code Display Name Description Problem Type Effective Dates Data Source(s) Z91.013 Allergy to seafood Z91.013 Diagnosis 01/16/2019 [place] 09:28:00 PM EDT Hospital Z91.010 Allergy to peanuts Z91.010 Diagnosis 01/16/2019 [place] 09:28:00 PM EDT Hospital Z88.5 Allergy status to Z88.5 Diagnosis 01/16/2019 [place] narcotic agent 09:28:00 PM EDT Hospi nikolas status Z88.6 Allergy status to Z88.6 Diagnosis 01/16/2019 [place] analgesic agent 09:28:00 PM EDT Hosp ital status Z86.711 Personal history Z86.711 Diagnosis 01/16/2019 [facility] ains of pulmonary 09:28:00 PM EDT Hospita l embolism R60.0 Localized edema R60.0 Diagnosis 01/16/2019 [facility] 09:28:00 PM EDT Hospital Results ID Date Data Source [id number] 03/28/2020 02:12:00 PM EDT [facility] System Name Value Range Interpretation Code Description Data Sallie rce(s) Supporting Document(s ) SARS-CoV-2 [facility] Ql REJI+probe This lab was ordered by [facility] a nd reported by [facility]. ID Date Data Source [id number] 03/15/2020 11:01:00 PM EDT [facility] Name Value Range Interpretation Code Description Data Sallie rce(s) Supporting Document(s ) SARS-CoV-2 [facility] Ql REJI+probe This lab was ordered by [facility] a nd reported by [facility]. ID Date Data Source [id number] 03/07/2020 02:31:00 PM EDT [facility] Name Value Range Interpretation Code Description Data Sallie rce(s) Supporting Document(s ) SARS-CoV-2 [facility] Ql REJI+probe This lab was ordered by [facility] a nd reported by [facility]. ID Date Data Source [id number] 01/16/2019 10:02:00 PM EDT [facility] Name Value Range Interpretation Description Data Sup porting Code Source(s) Document(s ) Leukocyte NEGATIVE [place] esterase Hospital [Presence] in Urine by Test strip ID Date Data Source [id number] 01/16/2019 10:02:00 PM EDT [facility] Name Value Range Interpretation Description Data Sup porting Code Source(s) Document(s ) URINE NEGATIVE [place] NITRITES Hospital ID Date Data Source [id number] 01/16/2019 10:02:00 PM EDT [facility] Name Value Range Interpretation Description Data Sup porting Code Source(s) Document(s ) Erythrocytes NEGATIVE [place] [#/volume] in Hospital Urine by Test strip ID Date Data Source [id number] 01/16/2019 10:02:00 PM EDT [facility] Name Value Range Interpretation Code Description Data Sallie rce(s) Supporting Document(s ) Bilirubin. NEGATIVE [place] total Hospital [Presence] in Urine by Test strip ID Date Data Source [id number] 01/16/2019 10:02:00 PM EDT [facility] Name Value Range Interpretation Description Data Sup porting Code Source(s) Document(s ) Urobilinogen 1.0 [place] [Units/volume] mg/dL Hospital in Urine by Test strip ID Date Data Source [id number] 01/16/2019 10:02:00 PM EDT [facility] Name Value Range Interpretation Description Data Sup porting Code Source(s) Document(s ) Ketones NEGATIVE [place] [Mass/volume Hospital ] in Urine by Test strip ID Date Data Source [id number] 01/16/2019 10:02:00 PM EDT [facility] Name Value Range Interpretation Description Data Sup porting Code Source(s) Document(s ) Glucose NEGATIVE [place] [Mass/volume Hospital ] in Urine by Test strip ID Date Data Source [id number] 01/16/2019 10:02:00 PM EDT [facility] Name Value Range Interpretation Description Data Sup porting Code Source(s) Document(s ) Protein NEGATIVE [place] [Presence] Hospital in Urine by Test strip ID Date Data Source [id number] 01/16/2019 10:02:00 PM EDT [facility] Name Value Range Interpretation Code Description Data Sallie rce(s) Supporting Document(s ) pH of Urine 7.0 [place] by Test Hospital strip ID Date Data Source [id number] 01/16/2019 10:02:00 PM [facility] Name Value Range Interpretation Code Description Data Supporting Source(s) Document(s ) Specific 1.015 [place] gravity of Hospital Urine by Test strip ID Date Data Source [id number] [facility] Interpretation Description Data Sup porting Code Source(s) Document(s ) Clarity in Urine CLEAR [place] by Refractometry Hospital automated ID Date Data Source [id number] 01/16/2019 10:02:00 PM [facility] Name Value Range Interpretation Code Description Data Sallie rce(s) Supporting Document(s ) Color of YELLOW [place] Urine Hospital ID Date Data Source [id number] [facility] Interpretation Description Data Sup porting Code Source(s) Document(s ) Natriuretic 4.1 pg/mL [place] peptide B Hospital [Mass/volume] in Serum or Plasma ID Date Data Source [id number] 01/16/2019 08:42:00 PM [facility] Name Value Range Interpretation Description Data Sup porting Code Source(s) Document(s ) Aspartate 16 U/L [facility] amin[facility] [place] [Enzymatic Hospital activity/volume] in Serum or Plasma ID Date Data Source [id number] 01/16/2019 08:42:00 PM [facility] Value Range Interpretation Description Data Sup porting Code Source(s) Document(s ) Alanine 10 U/L [facility] amin[facility] [place] [Enzymatic Hospital activity/volume] in Serum or Plasma ID Date Data Source [id number] 01/16/2019 08:42:00 PM EDT [facility] Name Value Range Interpretation Description Data Sup porting Code Source(s) Document(s ) Alkaline 86 U/L [place] phosphatase Hospital [Enzymatic activity/volume ] in Serum or Plasma ID Date Data Source [id number] 01/16/2019 08:42:00 PM EDT [facility] Name Value Range Interpretation Description Data Sup porting Code Source(s) Document(s ) Bilirubin.t 0.5 mg/dL [facility] [Mass/volum e] in Serum or Plasma ID Date Data Source [id number] 01/16/2019 08:42:00 PM EDT [facility] Name Value Range Interpretation Code Description Data Sallie rce(s) Supporting Document(s ) Albumin/Glob 1.2 [place] ulin [Mass Hospital Ratio] in Serum or Plasma ID Date Data Source [id number] 01/16/2019 08:42:00 PM EDT [facility] Value Range Interpretation Description Data Sup porting Code Source(s) Document(s ) Albumin 3.9 g/dL [place] [Mass/volume Hospital ] in Serum or Plasma ID Date Data Source [id number] 01/16/2019 08:42:00 PM EDT [facility] Name Value Range Interpretation Description Data Sup porting Code Source(s) Document(s ) Protein 7.1 g/dL [place] [Mass/volume Hospital ] in Serum or Plasma ID Date Data Source [id number] 01/16/2019 08:42:00 PM EDT [facility] Name Value Range Interpretation Description Data Sup porting Code Source(s) Document(s ) Calcium 8.8 mg/dL [place] [Mass/volume Hospital ] in Serum or Plasma ID Date Data Source [id number] [facility] Interpretation Code Description Data Sallie rce(s) Supporting Document(s ) Urea 15.0 [place] nitrogen/Cre Hospital atinine [Mass Ratio] in Serum or Plasma ID Date Data Source [id number] 01/16/2019 08:42:00 PM EDT [facility] Name Value Range Interpretation Description Data Sup porting Code Source(s) Document(s ) Creatinine 0.8 mg/dL [place] [Mass/volume] Hospital in Serum or Plasma ID Date Data Source [id number] 01/16/2019 08:42:00 PM EDT [facility] Name Value Range Interpretation Description Data Sup porting Code Source(s) Document(s ) Urea 12 mg/dL [place] nitrogen Hospital [Mass/volume ] in Serum or Plasma ID Date Data Source [id number] 01/16/2019 08:42:00 PM EDT [facility] Value Range Interpretation Code Description Data Sallie rce(s) Supporting Document(s ) Anion gap in 11 [place] Serum or [facility] Plasma ID Date Data Source [id number] 01/16/2019 08:42:00 PM EDT [facility] Name Value Range Interpretation Description Data Sup porting Code Source(s) Document(s ) Carbon 26 mmol/L [place] dioxide, Hospital total [Moles/volu me] in Serum or Plasma ID Date Data Source [id number] 01/16/2019 08:42:00 PM EDT [facility] Name Value Range Interpretation Description Data Sup porting Code Source(s) Document(s ) Chloride 105 [place] [Moles/volum mmol/L Hospital e] in Serum or Plasma ID Date Data Source [id number] 01/16/2019 08:42:00 PM EDT [facility] Name Value Range Interpretation Description Data Sup porting Code Source(s) Document(s ) Potassium 4.1 [place] [Moles/volume mmol/L Hospital ] in Serum or Plasma ID Date Data Source [id number] 01/16/2019 08:42:00 PM EDT [facility] Value Range Interpretation Description Data Sup porting Code Source(s) Document(s ) Sodium 138 mmol/L [place] [[facility]] in Serum or Plasma ID Date Data Source [id number] 01/16/2019 08:42:00 PM EDT [facility] Value Range Interpretation Description Data Sup porting Code Source(s) Document(s ) Glucose 85 mg/dL [place] [Mass/volume [facility] ] in Serum or Plasma ID Date Data Source [id number] 01/16/2019 [facility]42[facility] Value Range Interpretation Code Description Data Supporting Source(s) Document(s ) NUCLEATED RBCS 0.0 % [place] (AUTO Hospital DIFF%)DIS ID Date Data Source [id number] 01/16/2019 [facility]42[facility] Value Range Interpretation Description Data Sup porting Code Source(s) Document(s ) Differential AUTOMATED [place] cell count [facility] method - Blood ID Date Data Source [id number] 01/16/2019 08[facility]42[facility] Value Range Interpretation Description Data Sup porting Code Source(s) Document(s ) Immature 0.02 [place] granulocytes 10*3/uL Hospital [#/volume] in Blood by Automated count ID Date Data Source [id number] 01/16/2019 08:42:00 PM EDT [facility] Value Range Interpretation Description Data Sup porting Code Source(s) Document(s ) Basophils 0.04 [place] [#/volume] in 10*3/uL Hospital Blood by Automated count ID Date Data Source [id number] 01/16/2019 08:42:00 PM EDT [facility] Name Value Range Interpretation Description Data Sup porting Code Source(s) Document(s ) Eosinophils 0.19 [place] [#/volume] in 10*3/uL Hospital Blood by Automated count ID Date Data Source [id number] 01/16/2019 08:42:00 PM EDT [facility] Value Range Interpretation Description Data Sup porting Code Source(s) Document(s ) Monocytes 0.48 [place] [#/volume] in 10*3/uL Hospital Blood by Automated count ID Date Data Source [id number] 01/16/2019 08:42:00 PM EDT [facility] Value Range Interpretation Description Data Sup porting Code Source(s) Document(s ) Lymphocytes 2.66 [place] [#/volume] in 10*3/uL Hospital Blood by Automated count ID Date Data Source [id number] 01/16/2019 08:42:00 PM EDT [facility] Value Range Interpretation Description Data Sup porting Code Source(s) Document(s ) Neutrophils 3.68 [place] [#/volume] in 10*3/uL Hospital Blood by Automated count ID Date Data Source [id number] 01/16/2019 08:42:00 PM EDT [facility] Value Range Interpretation Description Data Sup porting Code Source(s) Document(s ) Nucleated 0.0 % [place] erythrocytes/10 Hospital 0 leukocytes [Ratio] in Blood by Automated count ID Date Data Source [id number] 01/16/2019 08:42:00 PM EDT [facility] Value Range Interpretation Description Data Sup porting Code Source(s) Document(s ) Immature 0.3 % [place] granulocytes/10 Hospital 0 leukocytes in Blood by Automated count ID Date Data Source [id number] 01/16/2019 08:42:00 PM EDT [facility] Name Value Range Interpretation Description Data Sup porting Code Source(s) Document(s ) Basophils/100 0.6 % [place] leukocytes in Hospital Blood by Automated count ID Date Data Source [id number] 01/16/2019 08:42:00 PM EDT [facility] Value Range Interpretation Description Data Sup porting Code Source(s) Document(s ) Eosinophils/100 2.7 % [place] leukocytes in Hospital Blood by Automated count ID Date Data Source [id number] 01/16/2019 08:42:00 PM EDT [facility] Value Range Interpretation Description Data Sup porting Code Source(s) Document(s ) Monocytes/100 6.8 % [place] leukocytes in [facility] Blood by Automated count ID Date Data Source [id number] 01/16/2019 08:42:00 PM EDT [facility] Value Range Interpretation Description Data Sup porting Code Source(s) Document(s ) Lymphocytes/10 37.6 % [place] 0 leukocytes Hospital in Blood by Automated count ID Date Data Source [id number] 01/16/2019 08:42:00 PM EDT [facility] Value Range Interpretation Description Data Sup porting Code Source(s) Document(s ) Neutrophils/10 52.0 % [place] 0 leukocytes Hospital in Blood by Automated count ID Date Data Source [id number] 01/16/2019 08:42:00 PM EDT [facility] Value Range Interpretation Description Data Sup porting Code Source(s) Document(s ) Platelet mean 9.9 fL [place] volume Hospital [Entitic volume] in Blood by Automated count ID Date Data Source [id number] 01/16/2019 08:42:00 PM EDT [facility] Value Range Interpretation Description Data Sup porting Code Source(s) Document(s ) Platelets 323 [place] [#/volume] in 10*3/uL Hospital Blood by Automated count ID Date Data Source [id number] 01/16/2019 08:42:00 PM [facility] Value Range Interpretation Description Data Sup porting Code Source(s) Document(s ) Erythrocyte 14.6 % [facility] Hospital width [Ratio] by Automated count ID Date Data Source [id number] 01/16/2019 08:42:00 PM EDT [facility] Value Range Interpretation Description Data Sup porting Code Source(s) Document(s ) Erythrocyte mean 32.2 [place] corpuscular g/dL Hospital hemoglobin concentration [Mass/volume] by Automated count ID Date Data Source [id number] [facility] Range Interpretation Description Data Sup porting Code Source(s) Document(s ) Erythrocyte 25.9 pg [facility] corpuscular hemoglobin [Entitic mass] by Automated count ID Date Data Source [id number] 01/16/2019 08:42:00 PM [facility] Value Range Interpretation Description Data Sup porting Code Source(s) Document(s ) Erythrocyte 80.3 fL [facility] corpuscular volume [Entitic volume] by Automated count ID Date Data Source [id number] 01/16/2019 08:42:00 PM [facility] Value Range Interpretation Description Data Sup porting Code Source(s) Document(s ) Hematocrit 35.1 % [place] [Volume Hospital Fraction] of Blood by Automated count ID Date Data Source [id number] 01/16/2019 08:42[facility] Value Range Interpretation Description Data Sup porting Code Source(s) Document(s ) Hemoglobin 11.3 g/dL [place] [Mass/volume] Hospital in Blood ID Date Data Source [id number] 01/16/2019 08:42:00 PM EDT [facility] Name Value Range Interpretation Description Data Sup porting Code Source(s) Document(s ) Erythrocytes 4.37 [place] [#/volume] in 10*6/uL Hospital Blood by Automated count ID Date Data Source [id number] 01/16/2019 08:42:00 PM EDT [facility] Name Value Range Interpretation Description Data Sup porting Code Source(s) Document(s ) Leukocytes 7.1 [place] [#/volume] in 10*3/uL Hospital Blood by Automated count Procedure Social History Code Duration Value Status Description Data Source(s ) Smoking Unknown if ever completed Unknown if ever [facility] [place] smoked smoked Hospital Vital Signs ID Date Data Source UNK Name Value Range Interpretation Code Description Data Source(s) Diastolic blood 74 mm[Hg] 74 mm[Hg] [facility] Systolic blood 134 mm[Hg] 134 mm[Hg] [facility] Respiratory rate 18 /min 18 /min [facility] Heart rate 81 /min 81 /min [facility] Body temperature 36.02985 36.22397 [facility] Body temperature 98.0 [degF] 98.0 [degF] [facility] Body mass index 68.0 kg/m2 68.0 kg/m2 [facility] (BMI) [Ratio] Hospital Body weight 387.82 387.82 [lb_av] [facility] [lb_av] Hospital
[2020-04-26 20:51] LABS: ALBUMIN 3.4 g/dl (3.4-5.0); BILIRUBIN,TOTAL 0.7 mg/dL (0.2-1); BLOOD UREA NITROGEN 6.9 mg/dL (7-18); CALCIUM 9.2 mg/dL (8.5-10.1); CREATININE 0.6 mg/dL (0.55-1.3); POTASSIUM 3.7 mmol/L (3.5-5.1); TOT PROT 7.4 g/dl (6.4-8.2)
[2020-04-26] MEDS ORDERED: PHYTONADIONE 10 MG/1 ML AMP IVPB ONE (21:07)
[2020-04-26] MEDS ORDERED: PHYTONADIONE 10 MG/1 ML AMP ONE (21:19)
[2020-04-27] MEDS ORDERED: LACTATED RINGERS SOLUTION 1000 ML INFUS.BAG IV ONE (00:38)
[2020-04-27] MEDS ORDERED: PIPERACILLIN/TAZOB 3.375 GM 3.375 GM in DEXTROSE 5%-WATER - 50 ML IVPB ONE (00:38)
[2020-04-27] MEDS ORDERED: PIPERACILLIN/TAZOB 3.375 GM 3.375 GM/50 ML BAG IVPB ONE (00:54)
[2020-04-27 03:10] VITALS: TEMP 98.3
[2020-04-27 05:43] VITALS: BP 134/76; PULSE 84
== END 2020-04-27 05:45 | disposition short-term general hospital (02) ==
LOC: JER 16:47
PROC: 3E03329 Introduction of Other Anti-infective into Peripheral Vein, Percutaneous Approach (ICD-10-PCS; principal; 2020-04-26)
PROC: 3E033GC Introduction of Other Therapeutic Substance into Peripheral Vein, Percutaneous Approach (ICD-10-PCS; 2020-04-26)
DX: N93.9 Abnormal uterine and vaginal bleeding, unspecified (principal)
CPT/HCPCS: 36415; 74177-TC; 76830-TC; 80053; 84703; 85025; 85610; 85730; 86850; 86900; 86901; 99285-25

== ENCOUNTER 2020-06-22 12:14 | Emergency (ER) | payer OTHER ==
[2020-06-22 12:26] VITALS: BP 139/82; PULSE 72; TEMP 98.6; BMI 57.1
[2020-06-22 14:27] LABS: BASO % 0.9 % (0-2.0); EOS % 3.3 % (0-4.5); HEMATOCRIT 38.6 % (32.4-45.2); HEMOGLOBIN 12.3 GM/dL (10.7-15.3); LYMPH % 39.3 % (8-40); MCH 26.5 pg (25.7-33.7); MEAN CELL VOLUME 82.9 fl (80-96); MEAN PLT VOLUME 8.5 fl (7.5-11.1); MONO % 6.5 % (3.8-10.2); PLATELET COUNT 327 K/MM3 (134-434); RBC 4.65 M/mm3 (3.60-5.2); RDW 15.6 % (11.6-15.6); WHITE BLOOD COUNT 5.9 K/mm3 (4.0-10.0)
[2020-06-22 14:34] LABS: INR 1.18 (0.83-1.09); PROTHROMBIN TIME (PATIENT) 14.5 SEC (9.7-13.0)
[2020-06-22 14:36] LABS: ACTIVATED PTT 41.2 SECONDS (25.2-36.5)
[2020-06-22 14:53] LABS: CHLORIDE 104 mmol/L (98-107); POTASSIUM 3.8 mmol/L (3.5-5.1); SODIUM 138 mmol/L (136-145)
[2020-06-22 14:55] LABS: ALBUMIN 3.7 g/dl (3.4-5.0); ANION GAP 6 MMOL/L (8-16); CALCIUM 9.4 mg/dL (8.5-10.1); CO2 28 mmol/L (21-32); GLUCOSE,RANDOM 83 mg/dL (74-106); MAGNESIUM 2.3 mg/dL (1.8-2.4)
[2020-06-22 14:59] LABS: CREATININE 0.7 mg/dL (0.55-1.3); SGOT/AST 20 U/L (15-37); SGPT/ALT 20 U/L (13-61)
[2020-06-22 15:00] LABS: BILIRUBIN,TOTAL 0.6 mg/dL (0.2-1); TOT PROT 7.7 g/dl (6.4-8.2)
[2020-06-22 15:02] LABS: ALK PHOS 87 U/L (45-117)
== END 2020-06-22 16:22 | disposition home or self-care (01) ==
LOC: JER 12:14
DX: M79.605 Pain in left leg (principal); R07.9 Chest pain, unspecified
CPT/HCPCS: 36415; 71046-TC-FY; 80053; 82550; 83735; 84484; 85025; 85610; 85730; 93005; 93010; 93971-TC; 99285-25